=== PATIENT | male | born 1955 | race Caucasian/White ===

== ENCOUNTER 2016-09-15 22:04 | Emergency (ER) | payer OTHER ==
[2016-09-15 22:24] VITALS: BP 119/69; BMI 22.6
--- NOTE | 2016-09-15 23:33 | DR.GENAD ---
HPI - PCP Primary Care Physician: MAGI - Complaint/Symptoms Chief Complaint:: PT C/O NOT FEELING GOOD AND HAVING CRAMPS IN NECK PT STATES" MY NECK GETS CRAMPS SOMETIMES i HAVE A COLD SINCE FRIDAY". - Source History Provided: Patient - Mode of Arrival Mode of Arrival: Ambulatory - Timing Onset of Chief Complaint: 09/13/16 PMH - PMH Past Medical History: Yes Past Medical History: CVA, Diabetes, Hypertension Past Medical History Comment: RENAL CANCER Past Surgical History: Yes Surgical History: Ortho Surgery Past Surgical History Comment: LT KIDNEY REMOVED - Family History History of Family Medical Conditions: Yes Family Medical History: [place] - Social History Type of Tobacco Use: Cigarettes Does any household member use tobacco: Yes Alcohol Use: None Do you use any recreational Drugs:: No Lives With: Family Lives Where: Home - infectious screening In the last 2 months have you had wt loss of >10#?: NO Have you had fever, night sweats or hemotysis?: No Have you traveled outside the country in the last 6 months?: No Isolation: Standard ROS - Review of Systems Constitutional: No Symptoms Reported Eyes: No Symptoms Reported ENTM: No Symptoms Reported Respiratoy: No Symptoms Reported Cardiovascular: No Symptoms Reported, Chest Pain Genitourinary: No Symptoms Reported Neurological: No Symptoms Reported Musculoskeletal: No Symptoms Reported Integumentary: No Symptoms Reported Hematologic/Lymphatic: No Symptoms Reported Endocrine: No Symptoms Reported Psychiatric: No Symptoms Reported All Other Systems: Reviewed and Negative PE - Vital Signs Vitals: Temperature 98.6 F Pulse Rate 101 Respiratory Rate 20 Blood Pressure [Left Arm] 113/62 Blood Pressure [Right Arm] 86/80 Blood Pressure 119/69 O2 Sat by Pulse Oximetry 94 - General Limitations: No Limitations General Appearance: Alert, In No Apparent Distress - Head Head Exam: Normal Inspection, Atraumatic - Eyes Eye exam: Normal Appearance, PERRL, EOMI - ENT ENT Exam: Normal Exam External Ear Exam: Normal External Inspection TM/Canal Exam: Bilateral Normal Nose Exam: Normal Nose Exam Mouth Exam: Normal Inspection Throat Exam: Normal Inspection - Neck Neck Exam: Tenderness - Chest Chest Inspection: Normal Inspection - Respiratory Respiratory Exam: Normal Lung Sounds Bilat Respiratory Exam: Bilateral Clear to Auscultation - Cardiovascular Cardiovascular Exam: Regular Rate - Abdominal Exam Abdominal Exam: Normal Inspection Abdominal Tenderness: negative: RUQ, RLQ, LUQ, LLQ, Epigastrium, Suprapubic, Diffuse, Mild, Moderate, Severe, Other - Extremities Extremities Exam: Normal Inspection, Full ROM - Back Back Exam: Normal Inspection, Full ROM - Neurologic Neurological Exam: Alert, Oriented X3, CN II-XII Intact - Psychiatric Psychiatric Exam: Normal Affect, Normal Mood - Skin Skin Exam: Warm, Dry, Intact - Diagnosis Discharge Problem: Neck pain - Discharge Plan Condition: Stable - Follow ups/Referrals Follow ups/Referrals: Luigi Jaimes [Primary Care Provider] - 3 days - Instructions
[2016-09-15] MEDS ORDERED: DECADRON INJ IM ONE (23:34)
[2016-09-15] MEDS ORDERED: DECADRON INJ ONE (23:49)
[2016-09-16] MEDS ORDERED: FLEXERIL TAB 10 MG PO PRN (00:23)
== END 2016-09-16 00:30 | disposition home or self-care (01) ==
LOC: ER 22:04
DX: M54.2 Cervicalgia (principal)
CPT/HCPCS: 96372; 99282; J1100

== ENCOUNTER 2016-12-05 22:50 | Emergency (ER) | payer OTHER ==
[2016-12-05 22:58] VITALS: BP 130/94; BMI 22.6
--- NOTE | 2016-12-06 01:02 | DR.GENAD ---
HPI - PCP Primary Care Physician: MAGI - HPI Comment HPI Comment: Pt c/o neck pain and cramping for 2 days. Also legs crampng started tonight. He hasn't slept for 6 nights and he takes 3-4 percocets daily. - Complaint/Symptoms Chief Complaint Doctors Comments: neck cramping Chief Complaint:: NECK PAIN, HURTS TO TURN NECK L/R, DENIES INJURY Self Treatment fo Chief Complaint: PERCOCET 1 HR AGO, - Nurses notes reviewed Nurses Notes Review: Yes - Source History Provided: Patient - Mode of Arrival Mode of Arrival: Ambulatory - Timing Onset of Chief Complaint: 12/05/16 Came on: Gradually - Duration Duration: Since Onset How lon Duration: Days - Severity Severity: Moderate PMH - PMH Past Medical History: Yes Past Medical History: CVA, Diabetes, Hypertension Past Surgical History: Yes Surgical History: Ortho Surgery - Family History History of Family Medical Conditions: Yes Family Medical History: [place] - Social History Does patient currently use any type of tobacco product: Yes Have you used tobacco products in the last 12 months: Yes Type of Tobacco Use: Cigarettes Does any household member use tobacco: No Alcohol Use: None Do you use any recreational Drugs:: No Lives With: Alone Lives Where: Home - infectious screening In the last 2 months have you had wt loss of >10#?: NO Have you had fever, night sweats or hemotysis?: No Have you traveled outside the country in the last 6 months?: No Isolation: Standard ROS - Review of Systems Constitutional: Weakness Respiratoy: No Symptoms Reported Cardiovascular: No Symptoms Reported Gastrointestinal/Abdominal: No Symptoms Reported Genitourinary: No Symptoms Reported Neurological: Tingling, Weakness Musculoskeletal: Muscle Pain, Muscle Stiffness, Neck Pain, Right, Left, Leg Integumentary: No Symptoms Reported Hematologic/Lymphatic: No Symptoms Reported Endocrine: No Symptoms Reported Psychiatric: Depression All Other Systems: Reviewed and Negative PE - Vital Signs Vitals: Temperature 98.3 F Pulse Rate 98 Respiratory Rate 16 Blood Pressure [Left Arm] 113/62 Blood Pressure [Right Arm] 86/80 Blood Pressure 130/94 O2 Sat by Pulse Oximetry 96 - General Limitations: No Limitations General Appearance: Alert, In No Apparent Distress - Head Head Exam: Normal Inspection - Neck Neck Exam: Normal Inspection, Full ROM, Tenderness - Chest Chest Inspection: Normal Inspection, Symmetric Chest Wall Rise - Respiratory Respiratory Exam: Normal Lung Sounds Bilat Respiratory Exam: Bilateral Clear to Auscultation - Cardiovascular Cardiovascular Exam: Regular Rate, Normal Rhythm, Normal Heart Sounds - Abdominal Exam Abdominal Exam: Normal Inspection - Extremities Extremities Exam: Normal Inspection - Back Back Exam: Normal Inspection, Full ROM - Neurologic Neurological Exam: Alert, Oriented X3, CN II-XII Intact - Psychiatric Psychiatric Exam: Normal Affect, Normal Mood - Skin Skin Exam: Warm, Dry, Intact, Normal Color MDM - Differential Diagnosis Differential Diagnosis: muscle spasm, electrolyte imbalance, ROR - Labs Reviewed Laboratory Results Reviewed?: Yes Result Diagrams: 12/06/16 01:20 12/06/16 01:20 Laboratory: WBC 7.7 X10^3/uL (3.6-10.0) 12/06/16 01:20 RBC 5.00 X10^6/uL (4.7-6.0) 12/06/16 01:20 Hgb 13.9 g/dL (13.5-18.0) 12/06/16 01:20 Hct 42.0 % (42.0-54.0) 12/06/16 01:20 MCV 84.0 fL (80.0-100.0) 12/06/16 01:20 MCH 27.7 pg (27.0-34.0) 12/06/16 01:20 MCHC 33.0 g/dL (33.0-35.0) 12/06/16 01:20 RDW 14.3 % (11.6-16.5) 12/06/16 01:20 Plt Count 204 X10^3/uL (150.0-450.0) 12/06/16 01:20 MPV 8.8 fL (7.4-11.0) 12/06/16 01:20 Neut % 57.7 % (42.0-75.0) 12/06/16 01:20 Lymph % 28.6 % (21.0-51.0) 12/06/16 01:20 [place] % 7.7 % (0.0-13.0) 12/06/16 01:20 Eos % 5.2 % (0.9-2.9) H 12/06/16 01:20 Baso % 0.8 % (0.2-1.0) 12/06/16 01:20 Neut # 4.4 x10^3/uL (2.2-4.8) 12/06/16 01:20 Lymph # 2.2 X10^3/uL (1.3-2.9) 12/06/16 01:20 [place] # 0.6 x10^3/uL (0.3-0.8) 12/06/16 01:20 Eos # 0.4 x10^3/uL (0.0-0.2) H 12/06/16 01:20 Baso # 0.1 X10^3/uL (0.0-0.1) 12/06/16 01:20 Absolute Nucleated RBC 0.0 /100WBC 12/06/16 01:20 Sodium 143 mmol/L (136-145) 12/06/16 01:20 Corrected Sodium TNP 12/06/16 01:20 Potassium 4.3 mmol/L (3.5-5.1) 12/06/16 01:20 Chloride 105 mmol/L (98-107) 12/06/16 01:20 Carbon Dioxide 31.5 mmol/L (21-32) 12/06/16 01:20 BUN 17 mg/dL (7-18) 12/06/16 01:20 Creatinine 1.30 mg/dL (0.70-1.30) 12/06/16 01:20 Est GFR (MDRD) Af Amer > 60 (>60) 12/06/16 01:20 Est GFR (MDRD) Non-Af 60 (>60) 12/06/16 01:20 Glucose 101 mg/dL (65-99) H 12/06/16 01:20 Calcium 8.5 mg/dL (8.5-10.1) 12/06/16 01:20 Corrected Calcium TNP 12/06/16 01:20 Total Bilirubin 0.20 mg/dL (0.2-1.0) 12/06/16 01:20 AST 29 Units/L (15-37) 12/06/16 01:20 ALT 44 Units/L (12-78) 12/06/16 01:20 Alkaline Phosphatase 96 Units/L (46-116) 12/06/16 01:20 Total Protein 8.1 g/dL (6.4-8.2) 12/06/16 01:20 Albumin 3.9 g/dL (3.4-5.0) 12/06/16 01:20 Globulin 4.2 g/dL (2.5-4.5) 12/06/16 01:20 Albumin/Globulin Ratio 0.9 Ratio (1.1-2.1) L 12/06/16 01:20 Specimen Type Clean catch urine 12/06/16 01:29 Urine Color Yellow (YELLOW) 12/06/16 01:29 Urine Appearance Clear (CLEAR) 12/06/16 01:29 Urine pH 6.0 (5.0 - 8.0) 12/06/16 01:29 Ur Specific [place] 1.015 (1.000-1.030) 12/06/16 01:29 Urine Protein Negative (NEGATIVE) 12/06/16 01: Urine Glucose (UA) Negative (NEGATIVE) 12/06/16 01:29 Urine Ketones Negative (NEGATIVE) 12/06/16 01:29 Urine Occult Blood Negative (NEGATIVE) 12/06/16 01:29 Urine Nitrite Negative (NEGATIVE) 12/06/16 01:29 Urine Bilirubin Negative (NEGATIVE) 12/06/16 01:29 Urine Urobilinogen Normal (NORMAL) 12/06/16 01:29 Ur Leukocyte Esterase Negative (NEGATIVE) 12/06/16 01:29 Urine RBC 0-3 /HPF (NEGATIVE) 12/06/16 01:29 Urine WBC 0-3 /HPF (NEGATIVE) 12/06/16 01:29 Ur Squamous Epith Cells Rare /HPF (NEGATIVE) 12/06/16 01:29 Urine Bacteria Negative /HPF (NEGATIVE) 12/06/16 01:29 Ur Culture Indicated? No/not indicated 12/06/16 01:29 Urine Opiates Screen Negative (NEG=<300) 12/06/16 01:29 Urine Methadone Screen Negative (NEG=<300) 12/06/16 01:29 Ur Barbiturates Screen Negative (NEG=<200) 12/06/16 01:29 Ur Phencyclidine Scrn Negative (NEG=<25) 12/06/16 01:29 Ur Amphetamines Screen Negative (NEG=<1000) 12/06/16 01:29 U Benzodiazepines Scrn Negative (NEG=<200) 12/06/16 01:29 Urine Cocaine Screen Negative (NEG=<300) 12/06/16 01:29 U Marijuana (THC) Screen Negative (NEG=<50) 12/06/16 01:29 - XRAY XRAY Interpreted by: Radiologist (DINAH) - Diagnosis Discharge Problem: Neck pain, Cramps of right lower extremity - Discharge Plan Disposition: 01 HOME, SELF-CARE Condition: Stable - Follow ups/Referrals Follow ups/Referrals: Luigi Jaimes [Primary Care Provider] - 3 days - Instructions Instructions: Heat Exhaustion Information, Acute Torticollis
[2016-12-06] MEDS ORDERED: TORADOL 60 MG VIAL IM ONE (01:10)
[2016-12-06] MEDS ORDERED: NORFLEX INJ IM ONE (01:10)
[2016-12-06] MEDS ORDERED: TORADOL 60 MG VIAL ONE (01:12)
[2016-12-06] MEDS ORDERED: NORFLEX INJ ONE (01:12)
[2016-12-06 01:29] LABS: BASOPHILS # (AUTO) 0.1 X10^3/uL (0.0-0.1); BASOPHILS % (AUTO) 0.8 % (0.2-1.0); EOSINOPHILS # (AUTO) 0.4 x10^3/uL (0.0-0.2); EOSINOPHILS % (AUTO) 5.2 % (0.9-2.9); HEMOGLOBIN 13.9 g/dL (13.5-18.0); LYMPHOCYTES # (AUTO) 2.2 X10^3/uL (1.3-2.9); LYMPHOCYTES % (AUTO) 28.6 % (21.0-51.0); MEAN CORPUSCULAR HEMOGLOBIN 27.7 pg (27.0-34.0); MEAN PLATELET VOLUME 8.8 fL (7.4-11.0); MONOCYTES # (AUTO) 0.6 x10^3/uL (0.3-0.8); MONOCYTES % (AUTO) 7.7 % (0.0-13.0); NEUTROPHILS # (AUTO) 4.4 x10^3/uL (2.2-4.8); NEUTROPHILS % (AUTO) 57.7 % (42.0-75.0); PLATELET COUNT 204 X10^3/uL (150.0-450.0); RED CELL DISTRIBUTION WIDTH 14.3 % (11.6-16.5); WHITE BLOOD COUNT 7.7 X10^3/uL (3.6-10.0)
[2016-12-06 01:37] LABS: BILIRUBIN,URINE NEGATIVE (NEGATIVE); BLOOD/HEMOGLOBIN,URINE NEGATIVE (NEGATIVE); GLUCOSE, URINE NEGATIVE (NEGATIVE); KETONES,URINE NEGATIVE (NEGATIVE); LEUKOCYTE ESTERASE ,URINE NEGATIVE (NEGATIVE); NITRITES,URINE NEGATIVE (NEGATIVE); PROTEIN,URINE NEGATIVE (NEGATIVE); UROBILINOGEN,URINE NORMAL (NORMAL)
[2016-12-06 01:41] LABS: ALANINE AMINOTRANSFERASE 44 Units/L (12-78); ALBUMIN 3.9 g/dL (3.4-5.0); ALKALINE PHOSPHATASE 96 Units/L (46-116); ASPARTATE AMINO TRANSFERASE 29 Units/L (15-37); BLOOD UREA NITROGEN 17 mg/dL (7-18); CALCIUM 8.5 mg/dL (8.5-10.1); CARBON DIOXIDE 31.5 mmol/L (21-32); CHLORIDE 105 mmol/L (98-107); GLUCOSE 101 mg/dL (65-99); SODIUM 143 mmol/L (136-145); TOTAL PROTEIN 8.1 g/dL (6.4-8.2); eGFR BLACK RACES > 60 (>60); eGFR NON BLACK RACES 60 (>60)
[2016-12-06 01:45] LABS: APPEARANCE,URINE CLEAR (CLEAR); BACTERIA,URINE NEGATIVE /HPF (NEGATIVE); COLOR,URINE YELLOW (YELLOW); RBC,URINE 0-3 /HPF (NEGATIVE); SQUAMOUS EPITHELIAL CELL,UR RARE /HPF (NEGATIVE)
--- NOTE | 2016-12-06 01:51 | RAD ---
EXAM: Cervical spine x-ray INDICATION: Neck pain COMPARISION: No priors available for comparison TECHNIQUE: AP, lateral, oblique, and odontoid, 5 views FINDINGS: Moderate degenerative disc changes are seen throughout cervical spine. There is normal alignment of the cervical vertebral bodies. The facets are intact. The soft tissues are normal. No acute fracture or subluxation identified. IMPRESSION: Moderate degenerative disc changes noted throughout the cervical spine. No acute abnormality identif ied. Reported By:
== END 2016-12-06 02:07 | disposition home or self-care (01) ==
LOC: ER 23:03
DX: M54.2 Cervicalgia (principal); R25.2 Cramp and spasm
CPT/HCPCS: 36415; 72050; 80053; 80307; 81001; 85025; 96372; 99282; G0434; J1885; J2360

== ENCOUNTER 2017-03-19 22:13 | Observation (INO) | payer OTHER ==
--- NOTE | 2017-03-19 22:45 | DR.GENAD ---
HPI - PCP Primary Care Physician: MAGI - HPI Comment HPI Comment: PATIENT SAID HE HAD A NOSE BLEEDING WHEN IT STARTED BUT THAT HAVE RESOLVE. SLIGHT CONGESTION PRESENT. DENIES DIZZINESS BUT HE IS WEAK. CONTINUE TO COUGH OFF BLOOD IN ED. NO CHEST PAIN. NO FEVER. PATIENT TAKES PLAVIX AND ASPRIN. - Complaint/Symptoms Chief Complaint Doctors Comments: HEMOPTESIS NOTED ONE HOUR BEFOR COMING. Chief Complaint:: PT STATES" I'M COUGHING UP BLOOD AND MY NOSE HAS BEEN BLEEDING FOR THE LAST HOUR" - Nurses notes reviewed Nurses Notes Review: Yes - Source History Provided: Patient - Mode of Arrival Mode of Arrival: Ambulatory - Timing Onset of Chief Complaint: 03/19/17 Came on: Suddenly - Duration Duration: Constant Duration: Hours - Severity Severity: Moderate PMH - PMH Past Medical History: Yes Past Medical History: CVA, Diabetes, Hypertension Past Surgical History: Yes Surgical History: Ortho Surgery Past Surgical History Comment: LT KIDNEY REMOVED LT KNEE - Family History History of Family Medical Conditions: Yes Family Medical History: [place] - Social History Does any household member use tobacco: No Alcohol Use: None Do you use any recreational Drugs:: No Lives With: Family Lives Where: Home - infectious screening In the last 2 months have you had wt loss of >10#?: NO Have you had fever, night sweats or hemotysis?: No Have you traveled outside the country in the last 6 months?: No Isolation: Standard ROS - Review of Systems Constitutional: Weakness, Fatigue. negative: Chills, Fever Eyes: negative: Eye Pain, Discharge ENTM: Nose Congestion. negative: Ear Pain, Nose Discharge Respiratoy: Productive Cough, Short of Breath, Wheezing, Hemoptysis Cardiovascular: No Symptoms Reported Gastrointestinal/Abdominal: No Symptoms Reported Genitourinary: No Symptoms Reported Neurological: Weakness Musculoskeletal: No Symptoms Reported Integumentary: No Symptoms Reported Hematologic/Lymphatic: Easy Bleeding, Easy Bruising Endocrine: No Symptoms Reported All Other Systems: Reviewed and Negative PE - Vital Signs Vitals: Temperature 98.1 F Pulse Rate [Left Brachial] 109 Pulse Rate 116 Respiratory Rate 20 Blood Pressure [Left Arm] 109/71 Blood Pressure [Right Arm] 86/80 Blood Pressure 119/82 O2 Sat by Pulse Oximetry 96 - General Limitations: No Limitations General Appearance: Alert - Head Head Exam: Normal Inspection - Eyes Eye exam: Normal Appearance - ENT ENT Exam: Normal External Ear Exam External Ear Exam: Normal External Inspection TM/Canal Exam: Bilateral Normal Nose Exam: Normal Nose Exam (NO ACTIVE NOSE BLEED.) Mouth Exam: Normal Inspection Throat Exam: Normal Inspection - Neck Neck Exam: Trachea Midline - Chest Chest Inspection: Symmetric Chest Wall Rise - Respiratory Respiratory Exam: Normal Lung Sounds Bilat Respiratory Exam: Upper Wheezing, Lower Wheezing - Cardiovascular Cardiovascular Exam: Regular Rate, Normal Rhythm, Normal Heart Sounds - Abdominal Exam Abdominal Exam: Normal Bowel Sounds, Soft. negative: Tenderness - Extremities Extremities Exam: Normal Inspection - Back Back Exam: Normal Inspection - Neurologic Neurological Exam: Alert, Oriented X3 - Psychiatric Psychiatric Exam: Anxious - Skin Skin Exam: Normal Color MDM - Additional Information Additional Information Obtained From: Family - Differential Diagnosis Differential Diagnosis: HEMOPTESIS, BRONCHITIS, PNEUMONIA Course - Treatment Treatment: SEE ORDERS. BLEEDING SPOTANOUSLY DECREASING WHILE IN ED. - Reevaluation 1st: Improved - Consultation Consultation Comments: DISCUSS PATIENT WITH DR. SOW, HE WILL ADMIT PATIENT. - Education/Counseling Education/Counseling: Patient, Family, Education Educated On: Treatment, Diagnosis ROR - Labs Reviewed Laboratory Results Reviewed?: Yes Result Diagrams: 03/19/17 22:55 03/19/17 22:55 Laboratory: WBC 6.6 X10^3/uL (3.6-10.0) 03/19/17 22:55 RBC 4.70 X10^6/uL (4.7-6.0) 03/19/17 22:55 Hgb 13.2 g/dL (13.5-18.0) L 03/19/17 22:55 Hct 39.3 % (42.0-54.0) L 03/19/17 22:55 MCV 83.7 fL (80.0-100.0) 03/19/17 22:55 MCH 28.1 pg (27.0-34.0) 03/19/17 22:55 MCHC 33.6 g/dL (33.0-35.0) 03/19/17 22:55 RDW 13.8 % (11.6-16.5) 03/19/17 22:55 Plt Count 219 X10^3/uL (150.0-450.0) 03/19/17 22:55 MPV 8.8 fL (7.4-11.0) 03/19/17 22:55 Neut % 55.7 % (42.0-75.0) 03/19/17 22:55 Lymph % 32.0 % (21.0-51.0) 03/19/17 22:55 [place] % 6.0 % (0.0-13.0) 03/19/17 22:55 Eos % 5.5 % (0.9-2.9) H 03/19/17 22:55 Baso % 0.8 % (0.2-1.0) 03/19/17 22:55 Neut # 3.7 x10^3/uL (2.2-4.8) 03/19/17 22:55 Lymph # 2.1 X10^3/uL (1.3-2.9) 03/19/17 22:55 [place] # 0.4 x10^3/uL (0.3-0.8) 03/19/17 22:55 Eos # 0.4 x10^3/uL (0.0-0.2) H 03/19/17 22:55 Baso # 0.0 X10^3/uL (0.0-0.1) 03/19/17 22:55 Absolute Nucleated RBC 0.0 /100WBC 03/19/17 22:55 INR Target Range - 03/19/17 22:55 INR 0.90 (0.8-1.3) 03/19/17 22:55 PTT 27.6 SECONDS (22.9-36.5) 03/19/17 22:55 PTT Comment - 03/19/17 22:55 Sodium 143 mmol/L (136-145) 03/19/17 22:55 Corrected Sodium 144 mmol/L (136-145) 03/19/17 22:55 Potassium 4.2 mmol/L (3.5-5.1) 03/19/17 22:55 Chloride 105 mmol/L (98-107) 03/19/17 22:55 Carbon Dioxide 26.9 mmol/L (21-32) 03/19/17 22:55 BUN 14 mg/dL (7-18) 03/19/17 22:55 Creatinine 1.38 mg/dL (0.70-1.30) H 03/19/17 22:55 Est GFR (MDRD) Af Amer > 60 (>60) 03/19/17 22:55 Est GFR (MDRD) Non-Af 56 (>60) L 03/19/17 22:55 Glucose 125 mg/dL (65-99) H 03/19/17 22:55 Calcium 8.5 mg/dL (8.5-10.1) 03/19/17 22:55 Corrected Calcium TNP 03/19/17 22:55 Total Bilirubin 0.10 mg/dL (0.2-1.0) L 03/19/17 22:55 AST 31 Units/L (15-37) 03/19/17 22:55 ALT 39 Units/L (12-78) 03/19/17 22:55 Alkaline Phosphatase 85 Units/L (46-116) 03/19/17 22:55 Total Protein 7.5 g/dL (6.4-8.2) 03/19/17 22:55 Albumin 3.6 g/dL (3.4-5.0) 03/19/17 22:55 Globulin 3.9 g/dL (2.5-4.5) 03/19/17 22:55 Albumin/Globulin Ratio 0.9 Ratio (1.1-2.1) L 03/19/17 22:55 - XRAY XRAY Interpreted by: Self XRAY Findings: BRONCHITIS - Diagnosis Discharge Problem: Bronchitis, Hemoptysis Pneumonia Qualifiers: Pneumonia type: due to unspecified organism COPD (chronic obstructive pulmonary disease) Qualifiers: COPD type: emphysema Emphysema type: unspecified Qualified Code(s): J43.9 - Emphysema, unspecified - Discharge Plan Disposition: ADMITTED INPATIENT Condition: Stable - Follow ups/Referrals - Instructions
[2017-03-19 23:02] LABS: BASOPHILS % (AUTO) 0.8 % (0.2-1.0); EOSINOPHILS # (AUTO) 0.4 x10^3/uL (0.0-0.2); EOSINOPHILS % (AUTO) 5.5 % (0.9-2.9); HEMATOCRIT 39.3 % (42.0-54.0); HEMOGLOBIN 13.2 g/dL (13.5-18.0); LYMPHOCYTES # (AUTO) 2.1 X10^3/uL (1.3-2.9); MEAN CORPUSCULAR HEMOGLOBIN 28.1 pg (27.0-34.0); MEAN CORPUSCULAR HGB CONC 33.6 g/dL (33.0-35.0); MEAN CORPUSCULAR VOLUME 83.7 fL (80.0-100.0); MEAN PLATELET VOLUME 8.8 fL (7.4-11.0); MONOCYTES # (AUTO) 0.4 x10^3/uL (0.3-0.8); NEUTROPHILS # (AUTO) 3.7 x10^3/uL (2.2-4.8); NEUTROPHILS % (AUTO) 55.7 % (42.0-75.0); PLATELET COUNT 219 X10^3/uL (150.0-450.0); RED CELL DISTRIBUTION WIDTH 13.8 % (11.6-16.5); WHITE BLOOD COUNT 6.6 X10^3/uL (3.6-10.0)
[2017-03-19 23:14] LABS: ALANINE AMINOTRANSFERASE 39 Units/L (12-78); ALBUMIN 3.6 g/dL (3.4-5.0); ALKALINE PHOSPHATASE 85 Units/L (46-116); ASPARTATE AMINO TRANSFERASE 31 Units/L (15-37); BLOOD UREA NITROGEN 14 mg/dL (7-18); CALCIUM 8.5 mg/dL (8.5-10.1); CARBON DIOXIDE 26.9 mmol/L (21-32); CHLORIDE 105 mmol/L (98-107); COR NA(FOR HYPERGLY) 144 mmol/L (136-145); CREATININE 1.38 mg/dL (0.70-1.30); SODIUM 143 mmol/L (136-145); TOTAL PROTEIN 7.5 g/dL (6.4-8.2); eGFR BLACK RACES > 60 (>60); eGFR NON BLACK RACES 56 (>60)
[2017-03-19] MEDS ORDERED: XYLOCAINE 1 % (PLAIN) IM ONE (23:34)
[2017-03-20] MEDS ORDERED: TESSALON PERLES PO PRN (02:22)
[2017-03-20] MEDS ORDERED: ROCEPHIN VIAL 1 GM 1 GM in NS 50 ML IV + SPIKE MINIBAG* 50 ML IV SCH (02:30)
[2017-03-20] MEDS ORDERED: ROCEPHIN 1 GM IV PREMIX 1 GM/50 ML IV.SOLN. IV ONE (02:33)
[2017-03-20] MEDS ORDERED: NS 1000 ML 1,000 ML IV SCH (03:00)
[2017-03-20] MEDS: FLONASE NASAL SPRAY ENOSTRIL SCH ×2 (03:25→08:55)
[2017-03-20 03:33] VITALS: BMI 23.3
--- NOTE | 2017-03-20 05:40 | RAD ---
Chest, two views Indication: Coughing up blood Comparison: 04/17/2016 Findings: The heart size is normal. There are persistent opacities within the right upper lung with s uggestion of an underlying 1.5 cm spiculated lesion. Emphysematous changes are again noted. There are trace bilateral pleural effusions. The remainder of the lungs are clear. No pneumothorax is identifi ed. Impression: Persistent right upper lobe opacities with suggestion of an underlying 1.5 cm spiculated lesion. Give n patient history of hemoptysis, findings are highly concerning for underlying malignancy and further evaluation with contrast enhanced CT is recommended. Small bilateral pleural effusions. The above findings were discussed with Dr. Cortez by Dr. Cook via telephone at 5:30 a.m. 03/20/2017. Reported By:
[2017-03-20] MEDS: DUONEB 0.5 MG/3 MG NEB SCH ×2 (05:47→13:24)
[2017-03-20 06:06] LABS: BASOPHILS % (AUTO) 0.5 % (0.2-1.0); EOSINOPHILS # (AUTO) 0.2 x10^3/uL (0.0-0.2); HEMATOCRIT 37.2 % (42.0-54.0); HEMOGLOBIN 12.4 g/dL (13.5-18.0); LYMPHOCYTES # (AUTO) 1.4 X10^3/uL (1.3-2.9); LYMPHOCYTES % (AUTO) 20.8 % (21.0-51.0); MEAN CORPUSCULAR HGB CONC 33.5 g/dL (33.0-35.0); MEAN CORPUSCULAR VOLUME 83.8 fL (80.0-100.0); MEAN PLATELET VOLUME 9.1 fL (7.4-11.0); MONOCYTES # (AUTO) 0.5 x10^3/uL (0.3-0.8); MONOCYTES % (AUTO) 7.6 % (0.0-13.0); NEUTROPHILS # (AUTO) 4.7 x10^3/uL (2.2-4.8); NEUTROPHILS % (AUTO) 68.1 % (42.0-75.0); PLATELET COUNT 185 X10^3/uL (150.0-450.0); RED BLOOD COUNT 4.44 X10^6/uL (4.7-6.0); WHITE BLOOD COUNT 6.9 X10^3/uL (3.6-10.0)
[2017-03-20 06:25] LABS: ALANINE AMINOTRANSFERASE 35 Units/L (12-78); ALBUMIN 3.3 g/dL (3.4-5.0); ALKALINE PHOSPHATASE 78 Units/L (46-116); ASPARTATE AMINO TRANSFERASE 30 Units/L (15-37); BLOOD UREA NITROGEN 22 mg/dL (7-18); CALCIUM 8.5 mg/dL (8.5-10.1); CARBON DIOXIDE 24.7 mmol/L (21-32); CHLORIDE 106 mmol/L (98-107); COR CA(FOR HYPOALB) 9.1 mg/dL (8.5-10.1); COR NA(FOR HYPERGLY) 143 mmol/L (136-145); SODIUM 143 mmol/L (136-145); eGFR BLACK RACES > 60 (>60); eGFR NON BLACK RACES > 60 (>60)
[2017-03-20 07:20] LABS: CKMB % 1.8 % (<4); CREATINE KINASE 241 Units/L (39-308); TROPONIN I < 0.02 ng/mL (0-1.5)
[2017-03-20 07:22] LABS: CREATINE KINASE MB 4.3 ng/mL (0-4.0)
[2017-03-20] MEDS ORDERED: ROCEPHIN VIAL 1 GM 1 GM in NS 100 ML IV + SPIKE MINIBAG* 100 ML IV SCH (09:00)
--- NOTE | 2017-03-20 09:52 | CT ---
HISTORY: Hemoptysis infiltrate Study: CT chest with contrast Comparison: 04/16/2016 Technique: Multiple axial images of the chest were obtained from the thoracic inlet to the upper abdo men after the administration of IV contrast. Findings: The mediastinum does not demonstrate significant pathological lymphadenopathy. The previously describ ed mediastinal lymph nodes. And resolve decreased in size.. There is no pericardial effusion observe d. The thoracic aorta is normal in its contour without evidence for aneurysmal dilatation. The cent ral pulmonary arterial system does not demonstrate central filling defects to suggest pulmonary embol i. Evaluation of the lung parenchyma demonstrates persistent right perihilar triangular opacity with air bronchograms which is unchanged. This may be post treatment in nature although this would be better evaluated with a PET-CT to assess for metabolic activity. No focal consolidation or effusion is seen. . No new nodules are seen. The bony thorax is unremarkable in its appearance. The visualized porti ons of the upper abdomen are stable. IMPRESSION: 1. Stable right perihilar opacity unchanged from prior CT its probably due to postprocedural changes however this could be better evaluated with PET-CT to assess for any metabolic activity. Reported By:
[2017-03-20 12:30] LABS: CKMB % 2.1 % (<4); CREATINE KINASE 222 Units/L (39-308); TROPONIN I < 0.02 ng/mL (0-1.5)
[2017-03-20 12:32] LABS: CREATINE KINASE MB 4.6 ng/mL (0-4.0)
[2017-03-20 12:46] VITALS: BP 131/82
[2017-03-20] MEDS ORDERED: NORCO 5/325 MG TAB ONE (13:30)
[2017-03-20 13:36] LABS: HEMATOCRIT 38.8 % (42.0-54.0); HEMOGLOBIN 12.9 g/dL (13.5-18.0)
[2017-03-20] MEDS ORDERED: NORCO 5/325 MG TAB PO ONE (14:00)
== END 2017-03-20 14:25 | disposition home or self-care (01) ==
LOC: ER 22:38 → MED/SURG 03-20 02:10
PROVIDERS: ADMIT Internal Medicine; ATTEND Internal Medicine
DX: J20.9 Acute bronchitis, unspecified (principal); R04.2 Hemoptysis; J43.8 Other emphysema; J18.9 Pneumonia, unspecified organism; J90 Pleural effusion, not elsewhere classified; Z79.01 Long term (current) use of anticoagulants
CPT/HCPCS: 36415; 71020; 71260; 80053; 82550; 82553; 84484; 85014; 85018; 85025; 85610; 85730; 93005; 94640; 94760; 96365; 96374; 99218; 99284; A4222; G0378; J0696; J7620

== ENCOUNTER → 2017-08-21 | Outpatient (CLI) | payer OTHER ==
[~2017-08-21] MED LIST: NS 100 ML IV 100 ML IV ONE
--- NOTE | 2017-08-21 12:56 | CT ---
Indication: Pain and history of lung cancer Exam: CT abdomen and pelvis with contrast Comparison: 06/06/2014 Technique: Axial spiral images were obtained from lung bases through the pubic symphysis after bolus administration 75 cc Omnipaque 300 and oral contrast. Automated dose control was utilized. Findings: The lung bases are clear. There is mild hypertrophy of the caudate and left lobes of the li evert with mild fatty replacement throughout. There are some small hypodense cysts scattered in the lef t lobe superiorly measuring up to 8 mm which do not enhance and appear unchanged. The gallbladder, pa ncreas , and adrenals are normal. The spleen is normal size with a 3.7 cm cystic mass along the lower pole medially measuring 25 Hounsfield units . This measured 3 cm previously. No septations or enhanc ement is seen. The left kidney has been removed. The adrenals are normal. The right kidney is grossly normal in size with small hypodense cysts along the lower pole with the largest measuring 2.2 cm . T his measured 1.5 cm previously and measures 25 Hounsfield units . There is a smaller 1 cm cyst along the lower pole which is also slightly spot larger in size . No hydronephrosis or renal stones are see n. There is no adenopathy or ascites seen. 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 No adenopathy or ascites is seen. The appendix is normal. T he uterus has been removed with no adnexal mass or free fluid. The bladder is unremarkable. There is mild fat density along the inguinal regions which is unchanged. There are diverticula scattered along the sigmoid colon with which is unchanged with no pericolonic inflammation. There are degenerative c hanges seen at L5-S1 with bilateral pars defects and grade 1-2 spondylolisthesis of L5 on S1 . No agg ressive osseous lesion is seen. Impression: Status post left nephrectomy with a couple of small hypodense cystic appearing masses along the lower pole right kidney which have enlarged since the prior study and the largest has a mildly complex ap pearance . Recommend ultrasound correlation. 3.7 cm cystic mass in the spleen which has slightly enlarged but is up otherwise unchanged in appeara nce. Mild chronic liver changes with fatty replacement throughout and small hepatic cysts in the left lobe which is unchanged . Stat post hysterectomy with no pelvic mass Moderate diverticulosis of the sigmoid colon with no pericolonic inflammation. Small inguinal hernias bilaterally which are unchanged. Severe degenerative changes at L5-S1 with pars defects at L5 and associated grade 1-2 spondylolisthes is of L5 on S1. Reported By:
== END ==
LOC: RAD 10:20
PROVIDERS: ATTEND Internal Medicine
DX: R14.0 Abdominal distension (gaseous) (principal); R10.84 Generalized abdominal pain; Z85.21 Personal history of malignant neoplasm of larynx
CPT/HCPCS: 74177; A4222

== ENCOUNTER 2018-06-19 23:28 | Inpatient (IN) ==
--- NOTE | 2018-06-20 00:19 | DR.EXTPAIN ---
HPI Time seen Time Seen by Provider: 06/20/18 00:07 PCP Primary Care Physician: DR. SOW Complaint/Symptoms Chief Complaint Doctor Comments: 63 y/o male presenting with c/o right sided lower rib pain. He states this has been present x 6 days. He was self medicating at home. He has associated cough nut no dypnea. The pain is exacerbated by deep breath, cough and positional arm changes. He has had no fever, nausea/vomiting. Chief Complaint:: STATES HE IS HURTING ON HIS RIGHT SIDE AND BACK PAIN. PT IS COUGHING DURING TRIAGE. Self Treatment fo Chief Complaint: PERCOCET 10/325MG Source History Provided: Patient Mode of arrival Mode of Arrival: Ambulatory Timing Onset of Chief Complaint: 06/18/18 PMH PMH Past Medical History: Yes Past Medical History: CVA, Diabetes and Hypertension Past Surgical History: Yes Surgical History: Ortho Surgery Past Surgical History Comment: LEFT KIDNEY REMOVAL Family History History of Family Medical Conditions: Yes Family Medical History: [place] Social History Alcohol Use: None Do you use any recreational Drugs:: No Lives With: Family Lives Where: Home infectious screening In the last 2 months have you had wt loss of >10#?: NO Have you had fever, night sweats or hemotysis?: No Have you traveled outside the country in the last 6 months?: No Isolation: Standard ROS Review of Systems Constitutional: No Symptoms Reported Eyes: No Symptoms Reported ENTM: No Symptoms Reported Respiratoy: Non-Productive Cough Cardiovascular: Chest Pain (rt. lower chest ) Gastrointestinal/Abdominal: No Symptoms Reported Genitourinary: No Symptoms Reported Neurological: No Symptoms Reported Musculoskeletal: No Symptoms Reported Integumentary: No Symptoms Reported Hematologic/Lymphatic: No Symptoms Reported Endocrine: No Symptoms Reported Psychiatric: No Symptoms Reported PE Vital Signs Vitals: Temperature 98.4 F Pulse Rate [Brachial] 96 Pulse Rate 96 Respiratory Rate 20 Blood Pressure [Left Arm] 131/82 Blood Pressure [Right Arm] 111/66 Blood Pressure 113/62 O2 Sat by Pulse Oximetry 96 General Limitations: No Limitations General Appearance: Alert and In No Apparent Distress Head Head Exam: Normal Inspection, Atraumatic and Normocephalic Eyes Eye exam: Normal Appearance, PERRL and EOMI ENT ENT Exam: Normal Exam, Normal Oropharynx and Mucous Membranes Moist Neck Neck Exam: Normal Inspection, Full ROM and Trachea Midline Chest Chest Inspection: Normal Inspection and Symmetric Chest Wall Rise Respiratory Respiratory Exam: Normal Lung Sounds Bilat Cardiovascular Cardiovascular Exam: Regular Rate, Normal Rhythm, +S1 and +S2 Abdominal Exam Abdominal Exam: Normal Inspection, Normal Bowel Sounds and Soft Extremities Extremities Exam: Normal Inspection and Full ROM Back Back Exam: Normal Inspection Neurological Neurological Exam: Alert and Oriented X3 Psychiatric Psychiatric Exam: Normal Affect and Normal Mood Skin Skin Exam: Warm, Dry and Intact ROR Labs Reviewed Result Diagrams: 06/20/18 00:24 06/20/18 00:24 Laboratory: WBC 10.6 X10^3/uL (3.6-10.0) H 06/20/18 00:24 RBC 4.16 X10^6/uL (4.7-6.0) L 06/20/18 00:24 Hgb 11.7 g/dL (13.5-18.0) L 06/20/18 00:24 Hct 34.8 % (42.0-54.0) L 06/20/18 00:24 MCV 83.8 fL (80.0-100.0) 06/20/18 00:24 MCH 28.1 pg (27.0-34.0) 06/20/18 00:24 MCHC 33.5 g/dL (33.0-35.0) 06/20/18 00:24 RDW 13.9 % (11.6-16.5) 06/20/18 00:24 Plt Count 315 X10^3/uL (150.0-450.0) 06/20/18 00:24 MPV 8.3 fL (7.4-11.0) 06/20/18 00:24 Neut % (Auto) 73.1 % (42.0-75.0) 06/20/18 00:24 Lymph % (Auto) 12.7 % (21.0-51.0) L 06/20/18 00:24 [place] % (Auto) 9.0 % (0.0-13.0) 06/20/18 00:24 Eos % (Auto) 4.2 % (0.9-2.9) H 06/20/18 00:24 Baso % (Auto) 1.0 % (0.2-1.0) 06/20/18 00:24 Neut # (Auto) 7.7 x10^3/uL (2.2-4.8) H 06/20/18 00:24 Lymph # (Auto) 1.3 X10^3/uL (1.3-2.9) 06/20/18 00:24 [place] # (Auto) 0.9 x10^3/uL (0.3-0.8) H 06/20/18 00:24 Eos # (Auto) 0.4 x10^3/uL (0.0-0.2) H 06/20/18 00:24 Baso # (Auto) 0.1 X10^3/uL (0.0-0.1) 06/20/18 00:24 Absolute Nucleated RBC 0.0 /100WBC 06/20/18 00:24 Sodium 136 mmol/L (136-145) 06/20/18 00:24 Corrected Sodium 137 mmol/L (136-145) 06/20/18 00:24 Potassium 4.2 mmol/L (3.5-5.1) 06/20/18 00:24 Chloride 98 mmol/L (98-107) 06/20/18 00:24 Carbon Dioxide 28.7 mmol/L (21-32) 06/20/18 00:24 BUN 23 mg/dL (7-18) H 06/20/18 00:24 Creatinine 1.54 mg/dL (0.70-1.30) H 06/20/18 00:24 Est GFR (MDRD) Af Amer 59 (>60) 06/20/18 00:24 Est GFR (MDRD) Non-Af 49 (>60) L 06/20/18 00:24 Glucose 121 mg/dL (65-99) H 06/20/18 00:24 Calcium 8.6 mg/dL (8.5-10.1) 06/20/18 00:24 Corrected Calcium 9.6 mg/dL (8.5-10.1) 06/20/18 00:24 Total Bilirubin 0.30 mg/dL (0.2-1.0) 06/20/18 00:24 AST 301 Units/L (15-37) H 06/20/18 00:24 ALT 147 Units/L (12-78) H 06/20/18 00:24 Alkaline Phosphatase 119 Units/L (46-116) H 06/20/18 00:24 Creatine Kinase 66694 Units/L (39-308) H 06/20/18 00:24 CK-MB (CK-2) 91.1 ng/mL (0-4.0) H* 06/20/18 00:24 CK/CKMB % Calc 0.7 % (<4) 06/20/18 00:24 Troponin I < 0.02 ng/mL (0-1.5) 06/20/18 00:24 Total Protein 7.8 g/dL (6.4-8.2) 06/20/18 00:24 Albumin 2.7 g/dL (3.4-5.0) L 06/20/18 00:24 Globulin 5.1 g/dL (2.5-4.5) H 06/20/18 00:24 Albumin/Globulin Ratio 0.5 Ratio (1.1-2.1) L 06/20/18 00:24 Diagnosis Discharge Problem: Elevated LFTs, Solitary kidney Rhabdomyolysis Qualifiers: Rhabdomyolysis type: non-traumatic Qualified Code(s): M62.82 - Rhabdomyolysis COPD (chronic obstructive pulmonary disease) Qualifiers: COPD type: chronic bronchitis Chronic bronchitis type: simple Qualified Code(s): J41.0 - Simple chronic bronchitis Diabetes mellitus Qualifiers: Diabetes mellitus type: type 2 Diabetes mellitus intermodal dispatcher insulin use: without intermodal dispatcher use Diabetes mellitus complication status: without complication Qualified Code(s): E11.9 - Type 2 diabetes mellitus without complications
[2018-06-20 00:38] LABS: BASOPHILS # (AUTO) 0.1 X10^3/uL (0.0-0.1); EOSINOPHILS # (AUTO) 0.4 x10^3/uL (0.0-0.2); EOSINOPHILS % (AUTO) 4.2 % (0.9-2.9); HEMATOCRIT 34.8 % (42.0-54.0); HEMOGLOBIN 11.7 g/dL (13.5-18.0); LYMPHOCYTES # (AUTO) 1.3 X10^3/uL (1.3-2.9); LYMPHOCYTES % (AUTO) 12.7 % (21.0-51.0); MEAN CORPUSCULAR HEMOGLOBIN 28.1 pg (27.0-34.0); MEAN CORPUSCULAR HGB CONC 33.5 g/dL (33.0-35.0); MEAN CORPUSCULAR VOLUME 83.8 fL (80.0-100.0); MEAN PLATELET VOLUME 8.3 fL (7.4-11.0); MONOCYTES # (AUTO) 0.9 x10^3/uL (0.3-0.8); NEUTROPHILS # (AUTO) 7.7 x10^3/uL (2.2-4.8); NEUTROPHILS % (AUTO) 73.1 % (42.0-75.0); PLATELET COUNT 315 X10^3/uL (150.0-450.0); RED BLOOD COUNT 4.16 X10^6/uL (4.7-6.0); RED CELL DISTRIBUTION WIDTH 13.9 % (11.6-16.5); WHITE BLOOD COUNT 10.6 X10^3/uL (3.6-10.0)
[2018-06-20 00:50] LABS: BLOOD UREA NITROGEN 23 mg/dL (7-18); CALCIUM 8.6 mg/dL (8.5-10.1); CARBON DIOXIDE 28.7 mmol/L (21-32); CHLORIDE 98 mmol/L (98-107); COR NA(FOR HYPERGLY) 137 mmol/L (136-145); CREATININE 1.54 mg/dL (0.70-1.30); SODIUM 136 mmol/L (136-145); TROPONIN I < 0.02 ng/mL (0-1.5); eGFR NON BLACK RACES 49 (>60)
[2018-06-20 01:13] LABS: ALANINE AMINOTRANSFERASE 147 Units/L (12-78); ALBUMIN 2.7 g/dL (3.4-5.0); ALKALINE PHOSPHATASE 119 Units/L (46-116); ASPARTATE AMINO TRANSFERASE 301 Units/L (15-37); COR CA(FOR HYPOALB) 9.6 mg/dL (8.5-10.1); TOTAL PROTEIN 7.8 g/dL (6.4-8.2)
--- NOTE | 2018-06-20 01:24 | RAD ---
Chest AP portable Indication: Pain after injury Findings: There is no pneumothorax or effusion. There is no consolidation. Monitoring leads obscure detail. Heart size is prominent lungs are hyperinflated Impression: Cardiomegaly and COPD. No large pneumothorax or dense consolidation seen. Patient rotation limits sensitivity significantly. Reported By:
[2018-06-20 01:45] LABS: CKMB % 0.7 % (<4); CREATINE KINASE 12236 Units/L (39-308); CREATINE KINASE MB 91.1 ng/mL (0-4.0)
[2018-06-20] MEDS ORDERED: NS 1000 ML 1,000 ML ONE (01:46)
[2018-06-20] MEDS ORDERED: NS 1000 ML 1,000 ML IV ONE (01:59)
[2018-06-20] MEDS: NS 1000 ML 1,000 ML IV SCH ×4 (03:05→20:58)
[2018-06-20] MEDS ORDERED: PATIENT'S HOME MEDICATION (Oxycodone-Acetaminophen [Oxycodone-Acetaminophen] 0 MG) PO PRN (03:17)
[2018-06-20] MEDS: DUONEB 0.5 MG/3 MG NEB PRN ×5 (03:54→20:58)
[2018-06-20 04:06] VITALS: BMI 22.1
[2018-06-20] MEDS: REQUIP PO SCH ×3 (05:20→21:14)
[2018-06-20] MEDS ORDERED: LYRICA CAP 150 MG PO SCH (06:00)
[2018-06-20 06:09] LABS: BILIRUBIN,URINE NEGATIVE (NEGATIVE); BLOOD/HEMOGLOBIN,URINE 2+ (NEGATIVE); GLUCOSE, URINE NEGATIVE (NEGATIVE); KETONES,URINE NEGATIVE (NEGATIVE); LEUKOCYTE ESTERASE ,URINE NEGATIVE (NEGATIVE); NITRITES,URINE NEGATIVE (NEGATIVE); PROTEIN,URINE 1+ (NEGATIVE); UROBILINOGEN,URINE NORMAL (NORMAL)
[2018-06-20 06:22] LABS: APPEARANCE,URINE CLEAR (CLEAR); COLOR,URINE YELLOW (YELLOW)
[2018-06-20 06:53] LABS: BACTERIA,URINE NEGATIVE /HPF (NEGATIVE); RBC,URINE 0-2 /HPF (NONE SEEN); SQUAMOUS EPITHELIAL CELL,UR RARE /HPF (NEGATIVE)
[2018-06-20] MEDS ORDERED: HumuLIN R SUBCUT PRN (07:54)
[2018-06-20] MEDS ORDERED: GLUCOPHAGE PO SCH (09:00)
[2018-06-20] MEDS: ROXICODONE TAB 5 MG PO PRN ×2 (09:10→20:13)
[2018-06-20] MEDS: ECOTRIN TAB 325 MG PO SCH (09:11)
[2018-06-20] MEDS: PLAVIX PO SCH (09:11)
[2018-06-20] MEDS: SYNTHROID 50 mcg TAB PO SCH (09:11)
[2018-06-20] MEDS: CRESTOR TAB 10 MG PO SCH (09:11)
[2018-06-20 10:39] LABS: TROPONIN I < 0.02 ng/mL (0-1.5)
[2018-06-20 10:46] LABS: CKMB % 0.7 % (<4); CREATINE KINASE 6178 Units/L (39-308); CREATINE KINASE MB 39.9 ng/mL (0-4.0)
[2018-06-20] MEDS: ZANAFLEX PO PRN ×2 (14:20→22:35)
[2018-06-20] MEDS: SNACK - Diabetic Appropriate PO SCH (20:12)
[2018-06-20] MEDS: TYLENOL 325 MG TAB PO PRN (20:13)
[2018-06-21] MEDS: NS 1000 ML 1,000 ML IV SCH ×4 (03:03→21:03)
[2018-06-21] MEDS: REQUIP PO SCH ×3 (05:13→21:03)
[2018-06-21] MEDS: ROXICODONE TAB 5 MG PO PRN ×3 (05:19→21:04)
[2018-06-21] MEDS: TYLENOL 325 MG TAB PO PRN ×3 (05:20→21:05)
[2018-06-21 05:31] LABS: BASOPHILS % (AUTO) 0.2 % (0.2-1.0); EOSINOPHILS # (AUTO) 0.1 x10^3/uL (0.0-0.2); EOSINOPHILS % (AUTO) 0.9 % (0.9-2.9); HEMATOCRIT 33.9 % (42.0-54.0); LYMPHOCYTES # (AUTO) 1.1 X10^3/uL (1.3-2.9); LYMPHOCYTES % (AUTO) 7.2 % (21.0-51.0); MEAN CORPUSCULAR HEMOGLOBIN 27.2 pg (27.0-34.0); MEAN CORPUSCULAR HGB CONC 32.4 g/dL (33.0-35.0); MEAN CORPUSCULAR VOLUME 83.9 fL (80.0-100.0); MEAN PLATELET VOLUME 8.6 fL (7.4-11.0); MONOCYTES # (AUTO) 0.9 x10^3/uL (0.3-0.8); MONOCYTES % (AUTO) 5.9 % (0.0-13.0); NEUTROPHILS # (AUTO) 13.7 x10^3/uL (2.2-4.8); NEUTROPHILS % (AUTO) 85.8 % (42.0-75.0); PLATELET COUNT 323 X10^3/uL (150.0-450.0); RED BLOOD COUNT 4.04 X10^6/uL (4.7-6.0); RED CELL DISTRIBUTION WIDTH 13.8 % (11.6-16.5); WHITE BLOOD COUNT 15.9 X10^3/uL (3.6-10.0)
[2018-06-21 05:50] LABS: ALANINE AMINOTRANSFERASE 106 Units/L (12-78); ALBUMIN 2.4 g/dL (3.4-5.0); ALKALINE PHOSPHATASE 107 Units/L (46-116); ASPARTATE AMINO TRANSFERASE 121 Units/L (15-37); BLOOD UREA NITROGEN 13 mg/dL (7-18); CALCIUM 8.6 mg/dL (8.5-10.1); CARBON DIOXIDE 26.7 mmol/L (21-32); CHLORIDE 103 mmol/L (98-107); COR CA(FOR HYPOALB) 9.9 mg/dL (8.5-10.1); COR NA(FOR HYPERGLY) 140 mmol/L (136-145); CREATININE 1.18 mg/dL (0.70-1.30); SODIUM 139 mmol/L (136-145); TOTAL PROTEIN 7.3 g/dL (6.4-8.2); eGFR NON BLACK RACES > 60 (>60)
[2018-06-21 08:00] LABS: TROPONIN I < 0.02 ng/mL (0-1.5)
[2018-06-21 08:08] LABS: CKMB % 0.3 % (<4)
[2018-06-21 08:09] LABS: CREATINE KINASE 3368 Units/L (39-308)
[2018-06-21] MEDS: CRESTOR TAB 10 MG PO SCH (08:47)
[2018-06-21] MEDS: ZANAFLEX PO PRN (08:47)
[2018-06-21] MEDS: SYNTHROID 50 mcg TAB PO SCH (08:47)
[2018-06-21] MEDS: PLAVIX PO SCH (08:47)
[2018-06-21] MEDS: ECOTRIN TAB 325 MG PO SCH (08:47)
[2018-06-21] MEDS: DUONEB 0.5 MG/3 MG NEB PRN ×4 (09:30→20:08)
--- NOTE | 2018-06-21 12:57 | DR.H&P ---
H&P - History & Physical for Day of: H&P Date: 06/20/18 - Chief Complaint Chief Complaint: DIFFUSE WEAKNESS, DEHYDRATION, CO PAIN ALL OVER - History of Present Illness History of Present Illness: 63 WM ER ADMISSION AFTER PRESENTING WITH CO PAIN ALL OVER, WEAKNESS. PT HAS HX OF LUNG CA AND RENAL CA WITH R NEPHRECTOMY. PT HAD BEEN ON [facility] OPIOID PAIN CONTROL AND STATES HE WAS BEEN OUT OF OXYCODONE FOR SEVERAL DAYS. [place] [address]. PT WAS ADMITTED FOR HYDRATION AND TREATMENT OF ACUTE RHABDOMYOLOSIS - Past Medical History Past Medical History: Anxiety, Arthritis, COPD, CVA, Diabetes, Hypertension Additional Medical History: Pneumonia, Lung Cancer, Renal Cancer - Past Surgical History Surgical History: Ortho Surgery Additional Surgical History: Left Nephrectomy, Left Knee Surgery - Family History Family Medical History: CA, Coronary Artery Disease - Social History Does patient currently use any type of tobacco product: Yes Have you used tobacco products in the last 12 months: Yes Type of Tobacco Use: Cigarettes How many years tobacco product used: 45 Does any household member use tobacco: No Alcohol Use: None Drug Use: None - Medications Home Medications: No Known Drug Allergies Allergy (Verified 03/19/17 22:17) CONTINUE taking the following medications aspirin [Ecotrin] 325 mg PO QDAY 06/20/18 [History] cyproheptadine 4 mg PO BIDWM 06/20/18 [History] metformin 500 mg PO BID 06/20/18 [History] oxycodone-acetaminophen 10 - 325 mg PO QID PRN 06/20/18 [History] pregabalin [Lyrica] 150 mg PO TID 06/20/18 [History] tizanidine 4 mg PO TID 06/20/18 [History] - Review of Systems Constitutional: Chills, Weakness, Malaise Eyes: No Symptoms Reported ENT: No Symptoms Reported Respiratory: Cough, Shortness of Breath, SOB with Excertion, Wheezing Cardiovascular: Light Headedness Gastrointestinal: Nausea Genitourinary: No Symptoms Reported Musculoskeletal: Back Pain, Leg Pain Skin: No Symptoms Reported Neurological: Weakness - Physical Exam Vital Signs: Temperature 98.1 F Pulse Rate [Left Brachial] 101 Pulse Rate [Brachial] 106 Pulse Rate 97 Respiratory Rate 22 Blood Pressure [Left Arm] 133/73 Blood Pressure [Right Arm] 122/70 Blood Pressure 113/62 O2 Sat by Pulse Oximetry 93 Oriented: Normal Eyes: Normal Ear: Normal Nose: Normal Throat: Normal Respiratory: Diminished Throughout Cardiovascular: Tachycardia : Normal Auscultation: Bowel Sounds: Normal Palpation: Normal Tenderness: Normal Skin: Decreased Turgur Musculoskeletal: Back:Thoracic, Back:Lumbar Psychiatric: Anxiety, Depression Affect: Anxious Speech Pattern: Clear, Appropriate - Assessment/Plan (1) Rhabdomyolysis Qualifiers: Rhabdomyolysis type: non-traumatic Qualified Code(s): M62.82 - Rhabdomyolysis Status: Acute Plan: ADMIT, GENTLE IV HYDRATION, BD CONTROL. STRICT I & OS, VERIFY HOME MEDICATION. BP CONTROL, CONTINUOUS CARDIAC MONITORING, OBTAIN LAST CT REPORTS. PAIN AND NAUSEA CONTROL, REPEAT CE, EKG ON ADMISSION. CXR ON ADMISSION, NEGRON PPLEMENTAL O2, RESP THERAPY. (2) Hx of malignant neoplasm of kidney Status: Acute (3) History of lung cancer Status: Acute (4) Diabetes Qualifiers: Diabetes mellitus type: type 2 Diabetes mellitus residential insulin use: without residential use Diabetes mellitus complication status: without complication Qualified Code(s): E11.9 - Type 2 diabetes mellitus without complications Status: Chronic (5) Hyperlipidemia Qualifiers: Hyperlipidemia type: mixed hyperlipidemia Qualified Code(s): E78.2 - Mixed hyperlipidemia Status: Chronic (6) COPD (chronic obstructive pulmonary disease) Qualifiers: COPD type: emphysema Emphysema type: unspecified Qualified Code(s): J43.9 - Emphysema, unspecified Status: Acute (7) Elevated LFTs Status: Acute - Allergies Allergies/Adverse Reactions: Allergies Allergy/AdvReac Type Severity Reaction Status Date / Time No Known Drug Allergies Allergy Verified 03/19/17 22:17
--- NOTE | 2018-06-21 13:02 | PCM.PROG ---
Progress Note - Progress Note for Day of Date of Exam: 06/21/18 - Subjective Subjective: 63 WM ER ADMISSION ON 06/20 WITH ACUTE RHABDOMYOLOSIS. PT HAD BEEN RECEIVING GENTLE IV HYDRATION WITH IMPROVEMENT IN BUN 13, CREAT 1.15 THIS AM. CK DOWN TO 6178. PT HAS INCREASED WHEEZING THIS AM, NO RALES OR RHONCHI. PLAN TO OBTAIN CT WITH CONTRAST OF CHEST, ABD AND PELVIS. DISCUSSED WITH PT AND FAMILY NEED TO FOLLOW UP WITH ONCOLOGIST, PT NEEDS UP TO DATE PET SCAN. WILL REPEAT AM LABS ADD BUDESONIDE TO NEB TREATMENTS. - Past Medical Family Social History Past Med/Fam/Surg Hx: No changes since H&P Allergies: Allergies No Known Drug Allergies Allergy (Verified 03/19/17 22:17) - Review of Systems ROS: No change since H&P - Vital Signs and I&O's Vital Signs: Temperature 98.1 F Pulse Rate [Left Brachial] 101 Pulse Rate [Brachial] 106 Pulse Rate 97 Respiratory Rate 22 Blood Pressure [Left Arm] 133/73 Blood Pressure [Right Arm] 122/70 Blood Pressure 113/62 O2 Sat by Pulse Oximetry 93 Intake and Output: Intake & Output 06/19/18 06/20/18 06/21/18 06/22/18 11:59 11:59 11:59 11:59 Intake Total 2145 / 2145 3710 / 3710 Output Total 600 / 600 1250 / 1250 Balance 1545 / 1545 2460 / 2460 - Physical Exam Oriented: Normal Eyes: Normal Ear: Normal Nose: Normal Throat: Normal Respiratory: Diminished, Wheezes Cardiovascular: Tachycardia : Normal Auscultation: Bowel Sounds: Normal Tenderness: Normal Skin: Decreased Turgur Musculoskeletal: Back:Thoracic, Back:Lumbar Psychiatric: Anxiety, Depression Affect: Anxious Speech Pattern: Clear, Appropriate - Laboratory and Diagnostics Result Diagrams: 06/21/18 04:40 06/21/18 04:40 Labs: Laboratory WBC 15.9 X10^3/uL (3.6-10.0) H 06/21/18 04:40 RBC 4.04 X10^6/uL (4.7-6.0) L 06/21/18 04:40 Hgb 11.0 g/dL (13.5-18.0) L 06/21/18 04:40 Hct 33.9 % (42.0-54.0) L 06/21/18 04:40 MCV 83.9 fL (80.0-100.0) 06/21/18 04:40 MCH 27.2 pg (27.0-34.0) 06/21/18 04:40 MCHC 32.4 g/dL (33.0-35.0) L 06/21/18 04:40 RDW 13.8 % (11.6-16.5) 06/21/18 04:40 Plt Count 323 X10^3/uL (150.0-450.0) 06/21/18 04:40 MPV 8.6 fL (7.4-11.0) 06/21/18 04:40 Neut % (Auto) 85.8 % (42.0-75.0) H 06/21/18 04:40 Lymph % (Auto) 7.2 % (21.0-51.0) L 06/21/18 04:40 [place] % (Auto) 5.9 % (0.0-13.0) 06/21/18 04:40 Eos % (Auto) 0.9 % (0.9-2.9) 06/21/18 04:40 Baso % (Auto) 0.2 % (0.2-1.0) 06/21/18 04:40 Neut # (Auto) 13.7 x10^3/uL (2.2-4.8) H 06/21/18 04:40 Lymph # (Auto) 1.1 X10^3/uL (1.3-2.9) L 06/21/18 04:40 [place] # (Auto) 0.9 x10^3/uL (0.3-0.8) H 06/21/18 04:40 Eos # (Auto) 0.1 x10^3/uL (0.0-0.2) 06/21/18 04:40 Baso # (Auto) 0.0 X10^3/uL (0.0-0.1) 06/21/18 04:40 Absolute Nucleated RBC 0.0 /100WBC 06/21/18 04:40 Sodium 139 mmol/L (136-145) 06/21/18 04:40 Corrected Sodium 140 mmol/L (136-145) 06/21/18 04:40 Potassium 4.0 mmol/L (3.5-5.1) 06/21/18 04:40 Chloride 103 mmol/L (98-107) 06/21/18 04:40 Carbon Dioxide 26.7 mmol/L (21-32) 06/21/18 04:40 BUN 13 mg/dL (7-18) 06/21/18 04:40 Creatinine 1.18 mg/dL (0.70-1.30) 06/21/18 04:40 Est GFR (MDRD) Af Amer > 60 (>60) 06/21/18 04:40 Est GFR (MDRD) Non-Af > 60 (>60) 06/21/18 04:40 Glucose 129 mg/dL (65-99) H 06/21/18 04:40 POC Glucose (mg/dL) 135 mg/dL (65-99) H 06/21/18 11:41 Calcium 8.6 mg/dL (8.5-10.1) 06/21/18 04:40 Corrected Calcium 9.9 mg/dL (8.5-10.1) 06/21/18 04:40 Total Bilirubin 0.40 mg/dL (0.2-1.0) 06/21/18 04:40 AST 121 Units/L (15-37) H 06/21/18 04:40 ALT 106 Units/L (12-78) H 06/21/18 04:40 Alkaline Phosphatase 107 Units/L (46-116) 06/21/18 04:40 Creatine Kinase 3368 Units/L (39-308) H 06/21/18 04:40 CK-MB (CK-2) 10.0 ng/mL (0-4.0) H* 06/21/18 04:40 CK/CKMB % Calc 0.3 % (<4) 06/21/18 04:40 Troponin I < 0.02 ng/mL (0-1.5) 06/21/18 04:40 Total Protein 7.3 g/dL (6.4-8.2) 06/21/18 04:40 Albumin 2.4 g/dL (3.4-5.0) L 06/21/18 04:40 Globulin 4.9 g/dL (2.5-4.5) H 06/21/18 04:40 Albumin/Globulin Ratio 0.5 Ratio (1.1-2.1) L 06/21/18 04:40 Specimen Type Clean catch urine 06/20/18 05:33 Urine Color Yellow (YELLOW) 06/20/18 05:33 Urine Appearance Clear (CLEAR) 06/20/18 05:33 Urine pH 6.0 (5.0 - 8.0) 06/20/18 05:33 Ur Specific [place] 1.010 (1.000-1.030) 06/20/18 05:33 Urine Protein 1+ (NEGATIVE) 06/20/18 05:33 Urine Glucose (UA) Negative (NEGATIVE) 06/20/18 05:33 Urine Ketones Negative (NEGATIVE) 06/20/18 05:33 Urine Occult Blood 2+ (NEGATIVE) 06/20/18 05:33 Urine Nitrite Negative (NEGATIVE) 06/20/18 05:33 Urine Bilirubin Negative (NEGATIVE) 06/20/18 05:33 Urine Urobilinogen Normal (NORMAL) 06/20/18 05:33 Ur Leukocyte Esterase Negative (NEGATIVE) 06/20/18 05:33 Urine RBC 0-2 /HPF (NONE SEEN) 06/20/18 05:33 Urine WBC None seen /HPF (NONE SEEN) 06/20/18 05:33 Ur Squamous Epith Cells Rare /HPF (NEGATIVE) 06/20/18 05:33 Urine Bacteria Negative /HPF (NEGATIVE) 06/20/18 05:33 Ur Culture Indicated? No/not indicated 06/20/18 05:33 - Plan (1) Rhabdomyolysis Status: Acute Qualifiers: Rhabdomyolysis type: non-traumatic Qualified Code(s): M62.82 - Rhabdomyolysis Plan: GENTLE IV HYDRATION, BD CONTROL. STRICT I & OS, VERIFY HOME MEDICATION. BP CONTROL, CONTINUOUS CARDIAC MONITORING, OBTAIN LAST CT REPORTS. CT CHEST ABD PELVIS WITH CONTRAST ORDERED. PAIN AND NAUSEA CONTROL, REPEAT CE. SUPPLEMENTAL O2, RESP THERAPY. (2) Hx of malignant neoplasm of kidney Status: Acute (3) History of lung cancer Status: Acute (4) Diabetes Status: Chronic Qualifiers: Diabetes mellitus type: type 2 Diabetes mellitus prison insulin use: without terminal system operator use Diabetes mellitus complication status: without complication Qualified Code(s): E11.9 - Type 2 diabetes mellitus without complications (5) Hyperlipidemia Status: Chronic Qualifiers: Hyperlipidemia type: mixed hyperlipidemia Qualified Code(s): E78.2 - Mixed hyperlipidemia (6) COPD (chronic obstructive pulmonary disease) Status: Acute Qualifiers: COPD type: emphysema Emphysema type: unspecified Qualified Code(s): J43.9 - Emphysema, unspecified (7) Elevated LFTs Status: Acute
[2018-06-21] MEDS ORDERED: NS 100 ML IV + SPIKE MINIBAG* 100 ML IV ONE (13:29)
[2018-06-21] MEDS: PULMICORT NEB TX 0.5 MG NEB SCH ×2 (16:54→20:07)
[2018-06-21] MEDS: MORPHINE SULFATE INJ 2 MG INJ IVP PRN ×2 (17:58→23:35)
[2018-06-21] MEDS: SNACK - Diabetic Appropriate PO SCH (21:04)
[2018-06-21 22:12] LABS: TROPONIN I < 0.02 ng/mL (0-1.5)
[2018-06-21 22:15] LABS: CREATINE KINASE MB 10.2 ng/mL (0-4.0)
[2018-06-21 22:16] LABS: CKMB % 0.4 % (<4)
[2018-06-21 22:17] LABS: CREATINE KINASE 2447 Units/L (39-308)
[2018-06-22] MEDS: ZANAFLEX PO PRN ×2 (00:14→21:04)
[2018-06-22] MEDS: REQUIP PO SCH ×3 (05:24→21:03)
[2018-06-22] MEDS: NS 1000 ML 1,000 ML IV SCH ×2 (05:24→19:52)
--- NOTE | 2018-06-22 05:59 | CT ---
CT chest with contrast CT abdomen and pelvis with contrast Indication: Elevated liver function test, COPD and rhabdomyolysis. Comparison: 08/21/2017 CT abdomen and pelvis. 03/20/2017 CT chest Technique: Helical images through the chest, abdomen and pelvis after IV contrast. Coronal and sagittal reformats provided. Findings: Chest: Patchy right upper lung opacity with scarring and peribronchial thickening is almost unchanged from the study from 2017. There is no pneumothorax or effusion. There are new patchy tree-in-bud opacities in the right lower lung and in the lingula. Mild to moderate COPD centrilobular nature is noted. Aortic arch and branch vessels shows scattered calcified plaque pulmonary arteries are grossly normal. No mass. Heart size is normal. Chest wall soft tissues are normal. Abdomen: Left kidney is absent. The liver contains left lobe cyst. Gallbladder and spleen show no acute abnormality with splenic cyst again noted. Vascular calcifications are noted. Stomach and small bowel are normal. Colonic diverticulosis noted. Appendix is normal. Right renal cysts are noted without hydronephrosis. Pelvis: There is right inguinal fat containing hernia. Urinary bladder is thick-walled. The rectum is normal. Prostate gland is normal. Review of bone windows shows pars defects at L5 with anterolisthesis of L5 on S1. Spinal canal stenosis results. Impression: 1. Patchy right lower lung opacities and peribronchial thickening, as well as lingular opacities are concerning for multifocal pneumonia. Follow-up to resolution to exclude underlying neoplasia 2. COPD change, vascular plaque, spine DJD, and other incidental findings in the abdomen as above. Diverticulosis, renal and splenic cysts, and right inguinal fat containing hernia 3. Thick-walled urinary bladder. Correlate for signs of urinary tract infection. Reported By:
[2018-06-22] MEDS: MORPHINE SULFATE INJ 2 MG INJ IVP PRN ×3 (06:07→19:04)
[2018-06-22 06:18] LABS: BASOPHILS % (AUTO) 0 % (0.2-1.0); EOSINOPHILS # (AUTO) 0.1 x10^3/uL (0.0-0.2); EOSINOPHILS % (AUTO) 0.5 % (0.9-2.9); HEMATOCRIT 31.8 % (42.0-54.0); HEMOGLOBIN 10.5 g/dL (13.5-18.0); LYMPHOCYTES % (AUTO) 5.4 % (21.0-51.0); MEAN CORPUSCULAR HEMOGLOBIN 27.1 pg (27.0-34.0); MEAN CORPUSCULAR HGB CONC 32.9 g/dL (33.0-35.0); MEAN CORPUSCULAR VOLUME 82.3 fL (80.0-100.0); MONOCYTES % (AUTO) 5.8 % (0.0-13.0); NEUTROPHILS # (AUTO) 15.5 x10^3/uL (2.2-4.8); NEUTROPHILS % (AUTO) 88.3 % (42.0-75.0); PLATELET COUNT 316 X10^3/uL (150.0-450.0); RED BLOOD COUNT 3.86 X10^6/uL (4.7-6.0); RED CELL DISTRIBUTION WIDTH 13.8 % (11.6-16.5); WHITE BLOOD COUNT 17.6 X10^3/uL (3.6-10.0)
[2018-06-22 06:33] LABS: ALANINE AMINOTRANSFERASE 93 Units/L (12-78); ALBUMIN 2.3 g/dL (3.4-5.0); ALKALINE PHOSPHATASE 102 Units/L (46-116); ASPARTATE AMINO TRANSFERASE 80 Units/L (15-37); BLOOD UREA NITROGEN 11 mg/dL (7-18); CALCIUM 8.8 mg/dL (8.5-10.1); CARBON DIOXIDE 23.6 mmol/L (21-32); CHLORIDE 103 mmol/L (98-107); COR CA(FOR HYPOALB) 10.2 mg/dL (8.5-10.1); COR NA(FOR HYPERGLY) 140 mmol/L (136-145); CREATININE 1.09 mg/dL (0.70-1.30); SODIUM 139 mmol/L (136-145); TOTAL PROTEIN 7.2 g/dL (6.4-8.2); eGFR NON BLACK RACES > 60 (>60)
[2018-06-22] MEDS: PULMICORT NEB TX 0.5 MG NEB SCH ×2 (09:01→20:15)
[2018-06-22] MEDS: DUONEB 0.5 MG/3 MG NEB PRN ×4 (09:01→20:15)
[2018-06-22] MEDS: CRESTOR TAB 10 MG PO SCH (09:21)
[2018-06-22] MEDS: ECOTRIN TAB 325 MG PO SCH (09:21)
[2018-06-22] MEDS: PLAVIX PO SCH (09:22)
[2018-06-22] MEDS: SYNTHROID 50 mcg TAB PO SCH (09:22)
[2018-06-22] MEDS ORDERED: SALINE 3% 15 ML NEB TX NEB ONE (09:28)
--- NOTE | 2018-06-22 13:10 | PCM.PROG ---
Progress Note - Progress Note for Day of Date of Exam: 06/22/18 - Subjective Subjective: WAS ADMITTED ON 06/20 WITH ACUTE RHABDOMYOLYSIS, ELEVATED LFTS, COPD, AND DM. 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 TODAY, HE IS ALERT AND ORIENTED, LYING IN BED ON MORNING ROUNDS. HE REPORTS WEAKNESS AND SHORTNESS OF BREATH. ON EXAMINATION, HEART IS REGULAR IN RATE AND RHYTHM. BILATERAL LUNGS ARE NOTED WITH DIMINISHED LUNG SOUNDS THROUGHOUT. ABDOMEN IS ROUND, SOFT, AND NON-TENDER WITH NORMAL BOWEL SOUNDS NOTED IN ALL QUADRANTS. HIS VITALS THIS MORNING ARE 97.9-100-20-95%-155/63. LABS WERE OBTAINED. ABNORMAL LAB VALUES INCLUDE THE FOLLOWING: WBC INCREASED TO 17.6, RBC 3.86, HGB 10.5, HCT 31.8, GLUCOSE 128, AST 80, ALT 93, CREATINE KINASE 2447, CK-MB 10.2, ALBUMIN 2.3, GLOBULIN 4.9. A CHEST CT WITH CONTRAST WAS OBTAINED AND REVEALED: Patchy right lower lung opacities and peribronchial thickening, as well as lingular opacities are concerning for multifocal pneumonia. Follow-up to resolution to exclude underlying neoplasia. COPD change, vascular plaque, spine DJD, and other incidental findings in the abdomen as above. Diverticulosis, renal and splenic cysts, and right inguinal fat containing hernia. HE IS CURRENTLY RECEIVING NORMAL SALINE AT 125ML/HR AND RESPIRATORY TREATMENTS. TODAY, WE WILL START FORTAZ IV AND LEVAQUIN IV. WE WILL HOLD HIS CRESTOR AT THIS TIME. OTHERWISE, WE PLAN TO FOLLOW UP WITH AM LABS AND CHEST XRAY AND CONTINUE TO MONITOR. - Past Medical Family Social History Past Med/Fam/Surg Hx: No changes since H&P Allergies: Allergies No Known Drug Allergies Allergy (Verified 03/19/17 22:17) - Review of Systems ROS: No change since H&P - Vital Signs and I&O's Vital Signs: Temperature 97.9 F Pulse Rate [Left Brachial] 101 Pulse Rate [Brachial] 107 Pulse Rate 97 Respiratory Rate 20 Blood Pressure [Left Arm] 133/73 Blood Pressure [Right Arm] 155/63 Blood Pressure 113/62 O2 Sat by Pulse Oximetry 96 Intake and Output: Intake & Output 06/20/18 06/21/18 06/22/18 06/23/18 11:59 11:59 11:59 11:59 Intake Total 2145 / 2145 3710 / 3710 3698 / 3698 Output Total 600 / 600 1250 / 1250 575 / 575 Balance 1545 / 1545 2460 / 2460 3123 / 3123 - Physical Exam Oriented: Normal Eyes: Normal Ear: Normal Nose: Normal Throat: Normal Respiratory: Diminished, Wheezes Cardiovascular: Tachycardia : Normal Auscultation: Bowel Sounds: Normal Palpation: Normal Tenderness: Normal Skin: Decreased Turgur Musculoskeletal: Back:Thoracic, Back:Lumbar Psychiatric: Anxiety, Depression Affect: Anxious Speech Pattern: Clear, Appropriate - Laboratory and Diagnostics Result Diagrams: 06/22/18 06:00 06/22/18 06:00 Labs: Laboratory WBC 17.6 X10^3/uL (3.6-10.0) H 06/22/18 06:00 RBC 3.86 X10^6/uL (4.7-6.0) L 06/22/18 06:00 Hgb 10.5 g/dL (13.5-18.0) L 06/22/18 06:00 Hct 31.8 % (42.0-54.0) L 06/22/18 06:00 MCV 82.3 fL (80.0-100.0) 06/22/18 06:00 MCH 27.1 pg (27.0-34.0) 06/22/18 06:00 MCHC 32.9 g/dL (33.0-35.0) L 06/22/18 06:00 RDW 13.8 % (11.6-16.5) 06/22/18 06:00 Plt Count 316 X10^3/uL (150.0-450.0) 06/22/18 06:00 MPV 8.0 fL (7.4-11.0) 06/22/18 06:00 Neut % (Auto) 88.3 % (42.0-75.0) H 06/22/18 06:00 Lymph % (Auto) 5.4 % (21.0-51.0) L 06/22/18 06:00 [place] % (Auto) 5.8 % (0.0-13.0) 06/22/18 06:00 Eos % (Auto) 0.5 % (0.9-2.9) L 06/22/18 06:00 Baso % (Auto) 0 % (0.2-1.0) L 06/22/18 06:00 Neut # (Auto) 15.5 x10^3/uL (2.2-4.8) H 06/22/18 06:00 Lymph # (Auto) 1.0 X10^3/uL (1.3-2.9) L 06/22/18 06:00 [place] # (Auto) 1.0 x10^3/uL (0.3-0.8) H 06/22/18 06:00 Eos # (Auto) 0.1 x10^3/uL (0.0-0.2) 06/22/18 06:00 Baso # (Auto) 0.0 X10^3/uL (0.0-0.1) 06/22/18 06:00 Absolute Nucleated RBC 0.0 /100WBC 06/22/18 06:00 Sodium 139 mmol/L (136-145) 06/22/18 06:00 Corrected Sodium 140 mmol/L (136-145) 06/22/18 06:00 Potassium 4.0 mmol/L (3.5-5.1) 06/22/18 06:00 Chloride 103 mmol/L (98-107) 06/22/18 06:00 Carbon Dioxide 23.6 mmol/L (21-32) 06/22/18 06:00 BUN 11 mg/dL (7-18) 06/22/18 06:00 Creatinine 1.09 mg/dL (0.70-1.30) 06/22/18 06:00 Est GFR (MDRD) Af Amer > 60 (>60) 06/22/18 06:00 Est GFR (MDRD) Non-Af > 60 (>60) 06/22/18 06:00 Glucose 128 mg/dL (65-99) H 06/22/18 06:00 POC Glucose (mg/dL) 128 mg/dL (65-99) H 06/21/18 20:32 Calcium 8.8 mg/dL (8.5-10.1) 06/22/18 06:00 Corrected Calcium 10.2 mg/dL (8.5-10.1) H 06/22/18 06:00 Total Bilirubin 0.40 mg/dL (0.2-1.0) 06/22/18 06:00 AST 80 Units/L (15-37) H 06/22/18 06:00 ALT 93 Units/L (12-78) H 06/22/18 06:00 Alkaline Phosphatase 102 Units/L (46-116) 06/22/18 06:00 Creatine Kinase 2447 Units/L (39-308) H 06/21/18 21:22 CK-MB (CK-2) 10.2 ng/mL (0-4.0) H* 06/21/18 21:22 CK/CKMB % Calc 0.4 % (<4) 06/21/18 21:22 Troponin I < 0.02 ng/mL (0-1.5) 06/21/18 21:22 Total Protein 7.2 g/dL (6.4-8.2) 06/22/18 06:00 Albumin 2.3 g/dL (3.4-5.0) L 06/22/18 06:00 Globulin 4.9 g/dL (2.5-4.5) H 06/22/18 06:00 Albumin/Globulin Ratio 0.5 Ratio (1.1-2.1) L 06/22/18 06:00 Specimen Type Clean catch urine 06/20/18 05:33 Urine Color Yellow (YELLOW) 06/20/18 05:33 Urine Appearance Clear (CLEAR) 06/20/18 05:33 Urine pH 6.0 (5.0 - 8.0) 06/20/18 05:33 Ur Specific [place] 1.010 (1.000-1.030) 06/20/18 05:33 Urine Protein 1+ (NEGATIVE) 06/20/18 05:33 Urine Glucose (UA) Negative (NEGATIVE) 06/20/18 05:33 Urine Ketones Negative (NEGATIVE) 06/20/18 05:33 Urine Occult Blood 2+ (NEGATIVE) 06/20/18 05:33 Urine Nitrite Negative (NEGATIVE) 06/20/18 05:33 Urine Bilirubin Negative (NEGATIVE) 06/20/18 05:33 Urine Urobilinogen Normal (NORMAL) 06/20/18 05:33 Ur Leukocyte Esterase Negative (NEGATIVE) 06/20/18 05:33 Urine RBC 0-2 /HPF (NONE SEEN) 06/20/18 05:33 Urine WBC None seen /HPF (NONE SEEN) 06/20/18 05:33 Ur Squamous Epith Cells Rare /HPF (NEGATIVE) 06/20/18 05:33 Urine Bacteria Negative /HPF (NEGATIVE) 06/20/18 05:33 Ur Culture Indicated? No/not indicated 06/20/18 05:33 - Plan (1) Rhabdomyolysis Status: Acute Qualifiers: Rhabdomyolysis type: non-traumatic Qualified Code(s): M62.82 - Rhabdomyolysis Plan: GENTLE IV HYDRATION, BD CONTROL. STRICT I & OS, VERIFY HOME MEDICATION. BP CONTROL, CONTINUOUS CARDIAC MONITORING. PAIN AND NAUSEA CONTROL, REPEAT CE. SUPPLEMENTAL O2, RESP THERAPY. (2) COPD (chronic obstructive pulmonary disease) Status: Acute Qualifiers: COPD type: chronic bronchitis Chronic bronchitis type: simple Qualified Code(s): J41.0 - Simple chronic bronchitis Plan: RESPIRATORY [place], SUPPLEMENTAL OXYGEN (3) Diabetes mellitus Status: Acute Qualifiers: Diabetes mellitus type: type 2 Diabetes mellitus termite inspector insulin use: without [place] [facility] use Diabetes mellitus complication status: without complication Qualified Code(s): E11.9 - Type 2 diabetes mellitus without complications (4) Pneumonia Status: Acute Qualifiers: Pneumonia type: due to unspecified organism Laterality: right Lung location: middle lobe of lung Qualified Code(s): J18.1 - Lobar pneumonia, unspecified organism Plan: IV FORTAZ, IV LEVAQUIN, RESPIRATORY [place], SUPPLEMENTAL OXYGEN, CONTINUE TO MONITOR
[2018-06-22] MEDS: FORTAZ or TAZICEF VIAL INJ IVP SCH ×3 (14:06→22:19)
[2018-06-22] MEDS: LEVAQUIN PREMIX IV 750 MG 750 MG/150 ML BAG IV SCH (14:13)
[2018-06-22] MEDS: SNACK - Diabetic Appropriate PO SCH (20:49)
[2018-06-22] MEDS: ROXICODONE TAB 5 MG PO PRN (21:04)
[2018-06-22 21:56] LABS: TROPONIN I < 0.02 ng/mL (0-1.5)
[2018-06-22 21:59] LABS: CREATINE KINASE MB 8.5 ng/mL (0-4.0)
[2018-06-22 22:00] LABS: CKMB % 0.8 % (<4); CREATINE KINASE 1094 Units/L (39-308)
[2018-06-22] MEDS ORDERED: RESTORIL CAP 15 MG PO PRN (23:26)
[2018-06-22] MEDS ORDERED: RESTORIL CAP 15 MG PO ONE (23:30)
[2018-06-23] MEDS: MORPHINE SULFATE INJ 2 MG INJ IVP PRN ×2 (00:56→08:30)
[2018-06-23] MEDS: NS 1000 ML 1,000 ML IV SCH ×6 (03:10→19:16)
[2018-06-23] MEDS: ROXICODONE TAB 5 MG PO PRN ×3 (05:32→21:13)
[2018-06-23] MEDS: REQUIP PO SCH ×3 (05:32→21:02)
[2018-06-23] MEDS: FORTAZ or TAZICEF VIAL INJ IVP SCH ×3 (05:32→21:01)
[2018-06-23 06:23] LABS: BASOPHILS # (AUTO) 0.1 X10^3/uL (0.0-0.1); BASOPHILS % (AUTO) 0.6 % (0.2-1.0); EOSINOPHILS # (AUTO) 0.2 x10^3/uL (0.0-0.2); EOSINOPHILS % (AUTO) 1.4 % (0.9-2.9); HEMATOCRIT 33.5 % (42.0-54.0); HEMOGLOBIN 10.7 g/dL (13.5-18.0); MEAN CORPUSCULAR HGB CONC 32.1 g/dL (33.0-35.0); MEAN CORPUSCULAR VOLUME 84.3 fL (80.0-100.0); MEAN PLATELET VOLUME 8.5 fL (7.4-11.0); MONOCYTES # (AUTO) 0.9 x10^3/uL (0.3-0.8); MONOCYTES % (AUTO) 6.2 % (0.0-13.0); NEUTROPHILS # (AUTO) 12.7 x10^3/uL (2.2-4.8); NEUTROPHILS % (AUTO) 84.8 % (42.0-75.0); PLATELET COUNT 327 X10^3/uL (150.0-450.0); RED BLOOD COUNT 3.97 X10^6/uL (4.7-6.0)
--- NOTE | 2018-06-23 06:47 | RAD ---
HISTORY: Shortness of breath Study: Chest AP portable Comparison: 06/20/2018, CT chest 06/21/2018 and multiple priors Findings: The heart is within normal limits in size. No congestive heart failure is noted. The lungs are hyperinflated consistent with COPD. Right-sided perihilar opacity representing atelectasis chronic infiltrate and scarring is identified. This area was obscured by rotation on the prior examination. This has been present since 2016. It has improved slightly since 2016. Patchy infiltrates are present in the lower lobes bilaterally suggestive of bronchopneumonia. No pleural effusions are identified. The bony thorax is unremarkable. IMPRESSION: Stable right perihilar opacity likely due to chronic atelectasis and scarring present since 2016 although slightly improved since than Bibasilar infiltrates suggestive of bronchopneumonia COPD Reported By:
[2018-06-23 06:57] LABS: ALANINE AMINOTRANSFERASE 89 Units/L (12-78); ALBUMIN 2.3 g/dL (3.4-5.0); ALKALINE PHOSPHATASE 106 Units/L (46-116); ASPARTATE AMINO TRANSFERASE 62 Units/L (15-37); BLOOD UREA NITROGEN 11 mg/dL (7-18); CALCIUM 8.8 mg/dL (8.5-10.1); CARBON DIOXIDE 25.6 mmol/L (21-32); CHLORIDE 102 mmol/L (98-107); COR CA(FOR HYPOALB) 10.2 mg/dL (8.5-10.1); CREATININE 1.07 mg/dL (0.70-1.30); SODIUM 138 mmol/L (136-145); TOTAL PROTEIN 7.4 g/dL (6.4-8.2); eGFR NON BLACK RACES > 60 (>60)
[2018-06-23 07:29] LABS: CREATINE KINASE 747 Units/L (39-308); TROPONIN I < 0.02 ng/mL (0-1.5)
[2018-06-23 07:31] LABS: CREATINE KINASE MB 7.8 ng/mL (0-4.0)
[2018-06-23] MEDS: PULMICORT NEB TX 0.5 MG NEB SCH ×2 (08:14→20:04)
[2018-06-23] MEDS: DUONEB 0.5 MG/3 MG NEB PRN ×4 (08:14→20:04)
[2018-06-23] MEDS: LEVAQUIN PREMIX IV 750 MG 750 MG/150 ML BAG IV SCH (08:30)
[2018-06-23] MEDS: SYNTHROID 50 mcg TAB PO SCH (08:33)
[2018-06-23] MEDS: ECOTRIN TAB 325 MG PO SCH (08:33)
[2018-06-23] MEDS: PLAVIX PO SCH (08:34)
[2018-06-23] MEDS ORDERED: PHARMACY CONSULT - TPN XX SCH (11:00)
[2018-06-23] MEDS: ALBUMIN HUMAN 25%- 100 ML 100 ML IV SCH (11:46)
[2018-06-23] MEDS: [UNRECOGNIZED DRUG - NUTRITION] IV SCH ×4 (14:05)
--- NOTE | 2018-06-23 19:03 | PCM.PROG ---
Progress Note - Progress Note for Day of Date of Exam: 06/23/18 - Subjective Subjective: WAS ADMITTED ON 06/20 WITH ACUTE RHABDOMYOLYSIS, ELEVATED LFTS, COPD, AND DM. 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 TODAY, HE IS ALERT AND ORIENTED, LYING IN BED ON MORNING ROUNDS. HE REPORTS WEAKNESS AND SHORTNESS OF BREATH. ON EXAMINATION, HEART IS REGULAR IN RATE AND RHYTHM. BILATERAL LUNGS ARE NOTED WITH DIMINISHED LUNG SOUNDS THROUGHOUT. ABDOMEN IS ROUND, SOFT, AND NON-TENDER WITH NORMAL BOWEL SOUNDS NOTED IN ALL QUADRANTS. HIS VITALS THIS MORNING ARE 97.8-86-89-90NC-144/84. LABS WERE OBTAINED. ABNORMAL LAB VALUES INCLUDE THE FOLLOWING: WBC 15.0, RBC 3.97, HGB 10.7, HCT 33.5, GLUCOSE 100, AST 62, ALT 89, CREATINE KINASE 747, CK-MB 7.8, ALBUMIN 2.3, GLOBULIN 5.1. A CHEST XRAY WAS OBTAINED TODAY AND REVEALED: Stable right perihilar opacity likely due to chronic atelectasis and scarring present since 2015 although slightly improved since than. Bibasilar infiltrates suggestive of bronchopneumonia. COPD. HE IS CURRENTLY RECEIVING NORMAL SALINE AT 125ML/HR, IV FORTAZ, IV LEVAQUIN, AND RESPIRATORY TREATMENTS. TODAY, WE WILL START ALBUMIN 25% IV DAILY AND TPN. OTHERWISE, WE PLAN TO FOLLOW UP WITH AM LABS AND CHEST XRAY AND CONTINUE TO MONITOR. - Past Medical Family Social History Past Med/Fam/Surg Hx: No changes since H&P Allergies: Allergies No Known Drug Allergies Allergy (Verified 03/19/17 22:17) - Review of Systems ROS: No change since H&P - Vital Signs and I&O's Vital Signs: Temperature 98.0 F Pulse Rate [Left Brachial] 101 Pulse Rate [Brachial] 94 Pulse Rate 88 Respiratory Rate 20 Blood Pressure [Left Arm] 133/73 Blood Pressure [Right Arm] 138/82 Blood Pressure 113/62 O2 Sat by Pulse Oximetry 99 Intake and Output: Intake & Output 06/21/18 06/22/18 06/23/18 06/24/18 11:59 11:59 11:59 11:59 Intake Total 3710 / 3710 3698 / 3698 1160 / 1160 1840 / 1840 Output Total 1250 / 1250 575 / 575 1150 / 1150 / Balance 2460 / 2460 3123 / 3123 1835 / 1835 - Physical Exam Oriented: Normal Eyes: Normal Ear: Normal Nose: Normal Throat: Normal Respiratory: Diminished, Wheezes Cardiovascular: Tachycardia : Normal Auscultation: Bowel Sounds: Normal Palpation: Normal Tenderness: Normal Skin: Decreased Turgur Musculoskeletal: Back:Thoracic, Back:Lumbar Psychiatric: Anxiety, Depression Affect: Anxious Speech Pattern: Clear, Appropriate - Laboratory and Diagnostics Result Diagrams: 06/23/18 05:45 06/23/18 05:45 Labs: Laboratory WBC 15.0 X10^3/uL (3.6-10.0) H 06/23/18 05:45 RBC 3.97 X10^6/uL (4.7-6.0) L 06/23/18 05:45 Hgb 10.7 g/dL (13.5-18.0) L 06/23/18 05:45 Hct 33.5 % (42.0-54.0) L 06/23/18 05:45 MCV 84.3 fL (80.0-100.0) 06/23/18 05:45 MCH 27.0 pg (27.0-34.0) 06/23/18 05:45 MCHC 32.1 g/dL (33.0-35.0) L 06/23/18 05:45 RDW 14.0 % (11.6-16.5) 06/23/18 05:45 Plt Count 327 X10^3/uL (150.0-450.0) 06/23/18 05:45 MPV 8.5 fL (7.4-11.0) 06/23/18 05:45 Neut % (Auto) 84.8 % (42.0-75.0) H 06/23/18 05:45 Lymph % (Auto) 7.0 % (21.0-51.0) L 06/23/18 05:45 [place] % (Auto) 6.2 % (0.0-13.0) 06/23/18 05:45 Eos % (Auto) 1.4 % (0.9-2.9) 06/23/18 05:45 Baso % (Auto) 0.6 % (0.2-1.0) 06/23/18 05:45 Neut # (Auto) 12.7 x10^3/uL (2.2-4.8) H 06/23/18 05:45 Lymph # (Auto) 1.0 X10^3/uL (1.3-2.9) L 06/23/18 05:45 [place] # (Auto) 0.9 x10^3/uL (0.3-0.8) H 06/23/18 05:45 Eos # (Auto) 0.2 x10^3/uL (0.0-0.2) 06/23/18 05:45 Baso # (Auto) 0.1 X10^3/uL (0.0-0.1) 06/23/18 05:45 Absolute Nucleated RBC 0.0 /100WBC 06/23/18 05:45 Sodium 138 mmol/L (136-145) 06/23/18 05:45 Corrected Sodium TNP 06/23/18 05:45 Potassium 3.8 mmol/L (3.5-5.1) 06/23/18 05:45 Chloride 102 mmol/L (98-107) 06/23/18 05:45 Carbon Dioxide 25.6 mmol/L (21-32) 06/23/18 05:45 BUN 11 mg/dL (7-18) 06/23/18 05:45 Creatinine 1.07 mg/dL (0.70-1.30) 06/23/18 05:45 Est GFR (MDRD) Af Amer > 60 (>60) 06/23/18 05:45 Est GFR (MDRD) Non-Af > 60 (>60) 06/23/18 05:45 Glucose 100 mg/dL (65-99) H 06/23/18 05:45 POC Glucose (mg/dL) 136 mg/dL (65-99) H 06/23/18 17:35 Calcium 8.8 mg/dL (8.5-10.1) 06/23/18 05:45 Corrected Calcium 10.2 mg/dL (8.5-10.1) H 06/23/18 05:45 Total Bilirubin 0.40 mg/dL (0.2-1.0) 06/23/18 05:45 AST 62 Units/L (15-37) H 06/23/18 05:45 ALT 89 Units/L (12-78) H 06/23/18 05:45 Alkaline Phosphatase 106 Units/L (46-116) 06/23/18 05:45 Creatine Kinase 747 Units/L (39-308) H 06/23/18 05:45 CK-MB (CK-2) 7.8 ng/mL (0-4.0) H* 06/23/18 05:45 CK/CKMB % Calc 1.0 % (<4) 06/23/18 05:45 Troponin I < 0.02 ng/mL (0-1.5) 06/23/18 05:45 Total Protein 7.4 g/dL (6.4-8.2) 06/23/18 05:45 Albumin 2.3 g/dL (3.4-5.0) L 06/23/18 05:45 Globulin 5.1 g/dL (2.5-4.5) H 06/23/18 05:45 Albumin/Globulin Ratio 0.5 Ratio (1.1-2.1) L 06/23/18 05:45 Prealbumin 9.7 mg/dL (18-35.7) L 06/23/18 05:45 Specimen Type Clean catch urine 06/20/18 05:33 Urine Color Yellow (YELLOW) 06/20/18 05:33 Urine Appearance Clear (CLEAR) 06/20/18 05:33 Urine pH 6.0 (5.0 - 8.0) 06/20/18 05:33 Ur Specific [place] 1.010 (1.000-1.030) 06/20/18 05:33 Urine Protein 1+ (NEGATIVE) 06/20/18 05:33 Urine Glucose (UA) Negative (NEGATIVE) 06/20/18 05:33 Urine Ketones Negative (NEGATIVE) 06/20/18 05:33 Urine Occult Blood 2+ (NEGATIVE) 06/20/18 05:33 Urine Nitrite Negative (NEGATIVE) 06/20/18 05:33 Urine Bilirubin Negative (NEGATIVE) 06/20/18 05:33 Urine Urobilinogen Normal (NORMAL) 06/20/18 05:33 Ur Leukocyte Esterase Negative (NEGATIVE) 06/20/18 05:33 Urine RBC 0-2 /HPF (NONE SEEN) 06/20/18 05:33 Urine WBC None seen /HPF (NONE SEEN) 06/20/18 05:33 Ur Squamous Epith Cells Rare /HPF (NEGATIVE) 06/20/18 05:33 Urine Bacteria Negative /HPF (NEGATIVE) 06/20/18 05:33 Ur Culture Indicated? No/not indicated 06/20/18 05:33 - Plan (1) Rhabdomyolysis Status: Acute Qualifiers: Rhabdomyolysis type: non-traumatic Qualified Code(s): M62.82 - Rhabdomyolysis Plan: GENTLE IV HYDRATION, BD CONTROL. STRICT I & OS, VERIFY HOME MEDICATION. BP CONTROL, CONTINUOUS CARDIAC MONITORING. PAIN AND NAUSEA CONTROL, REPEAT CE. SUPPLEMENTAL O2, RESP THERAPY. (2) COPD (chronic obstructive pulmonary disease) Status: Acute Qualifiers: COPD type: chronic bronchitis Chronic bronchitis type: simple Qualified Code(s): J41.0 - Simple chronic bronchitis Plan: RESPIRATORY [place], SUPPLEMENTAL OXYGEN (3) Diabetes mellitus Status: Acute Qualifiers: Diabetes mellitus type: type 2 Diabetes mellitus care home insulin use: without termite inspector use Diabetes mellitus complication status: without complication Qualified Code(s): E11.9 - Type 2 diabetes mellitus without complications (4) Pneumonia Status: Acute Qualifiers: Pneumonia type: due to unspecified organism Laterality: right Lung location: middle lobe of lung Qualified Code(s): J18.1 - Lobar pneumonia, unspecified organism Plan: IV FORTAZ, IV LEVAQUIN, RESPIRATORY [place], SUPPLEMENTAL OXYGEN, CONTINUE TO MONITOR (5) Hypoalbuminemia Status: Acute Plan: ALBUMIN 25% IV DAILY, TPN, CONTINUE TO MONITOR
[2018-06-23] MEDS: SNACK - Diabetic Appropriate PO SCH (20:53)
[2018-06-23] MEDS: LIPOSYN III 20% 100ML 100 ML IV SCH (20:56)
[2018-06-23] MEDS: ZANAFLEX PO PRN ×2 (20:56→21:01)
[2018-06-24] MEDS: [UNRECOGNIZED DRUG - NUTRITION] IV SCH ×8 (02:47→18:11)
[2018-06-24] MEDS: NS 1000 ML 1,000 ML IV SCH ×3 (05:50→20:26)
[2018-06-24] MEDS: REQUIP PO SCH ×3 (05:51→21:05)
[2018-06-24] MEDS: FORTAZ or TAZICEF VIAL INJ IVP SCH ×3 (05:51→21:05)
[2018-06-24] MEDS: MORPHINE SULFATE INJ 2 MG INJ IVP PRN (06:03)
[2018-06-24 06:18] LABS: BASOPHILS # (AUTO) 0.1 X10^3/uL (0.0-0.1); BASOPHILS % (AUTO) 0.7 % (0.2-1.0); EOSINOPHILS # (AUTO) 0.3 x10^3/uL (0.0-0.2); EOSINOPHILS % (AUTO) 2.2 % (0.9-2.9); HEMATOCRIT 31.8 % (42.0-54.0); HEMOGLOBIN 10.3 g/dL (13.5-18.0); LYMPHOCYTES % (AUTO) 8.7 % (21.0-51.0); MEAN CORPUSCULAR HGB CONC 32.4 g/dL (33.0-35.0); MEAN CORPUSCULAR VOLUME 83.4 fL (80.0-100.0); MEAN PLATELET VOLUME 8.9 fL (7.4-11.0); MONOCYTES # (AUTO) 0.6 x10^3/uL (0.3-0.8); MONOCYTES % (AUTO) 5.6 % (0.0-13.0); NEUTROPHILS # (AUTO) 9.5 x10^3/uL (2.2-4.8); NEUTROPHILS % (AUTO) 82.8 % (42.0-75.0); PLATELET COUNT 329 X10^3/uL (150.0-450.0); RED BLOOD COUNT 3.82 X10^6/uL (4.7-6.0); RED CELL DISTRIBUTION WIDTH 13.7 % (11.6-16.5); WHITE BLOOD COUNT 11.5 X10^3/uL (3.6-10.0)
[2018-06-24 06:27] LABS: ALANINE AMINOTRANSFERASE 82 Units/L (12-78); ALBUMIN 2.5 g/dL (3.4-5.0); ALKALINE PHOSPHATASE 94 Units/L (46-116); ASPARTATE AMINO TRANSFERASE 47 Units/L (15-37); BLOOD UREA NITROGEN 15 mg/dL (7-18); CALCIUM 9.1 mg/dL (8.5-10.1); CARBON DIOXIDE 27.5 mmol/L (21-32); CHLORIDE 102 mmol/L (98-107); COR CA(FOR HYPOALB) 10.3 mg/dL (8.5-10.1); COR NA(FOR HYPERGLY) 139 mmol/L (136-145); CREATININE 1.04 mg/dL (0.70-1.30); SODIUM 138 mmol/L (136-145); TOTAL PROTEIN 7.1 g/dL (6.4-8.2); eGFR NON BLACK RACES > 60 (>60)
--- NOTE | 2018-06-24 07:01 | RAD ---
HISTORY: Shortness of breath Study: Chest AP portable Comparison: 06/23/2018 Findings: The heart is within normal limits in size. No congestive heart failure is noted. The lungs remain hyperinflated consistent with COPD. Right perihilar parenchymal density is stable. Patchy infiltrates noted in the lower lobes on the prior examination are improving. No pleural effusions are identified. The bony thorax is unremarkable. IMPRESSION: Stable right perihilar opacity Slight improvement bibasilar infiltrates COPD Reported By:
[2018-06-24] MEDS: PULMICORT NEB TX 0.5 MG NEB SCH ×2 (08:37→20:16)
[2018-06-24] MEDS: DUONEB 0.5 MG/3 MG NEB PRN ×4 (08:37→20:16)
[2018-06-24] MEDS: ALBUMIN HUMAN 25%- 100 ML 100 ML IV SCH (08:54)
[2018-06-24] MEDS: LEVAQUIN PREMIX IV 750 MG 750 MG/150 ML BAG IV SCH (08:55)
[2018-06-24] MEDS: SYNTHROID 50 mcg TAB PO SCH (08:55)
[2018-06-24] MEDS: ECOTRIN TAB 325 MG PO SCH (08:55)
[2018-06-24] MEDS: PLAVIX PO SCH (08:55)
[2018-06-24] MEDS ORDERED: MILK OF MAGNESIA PO PRN (09:43)
[2018-06-24] MEDS: ROXICODONE TAB 5 MG PO PRN ×2 (11:02→21:46)
[2018-06-24] MEDS ORDERED: PROCALAMINE 3 % 1,000 ML IV ONE (19:00)
[2018-06-24] MEDS: SNACK - Diabetic Appropriate PO SCH (20:24)
[2018-06-24] MEDS: LIPOSYN III 20% 100ML 100 ML IV SCH (20:25)
[2018-06-24] MEDS ORDERED: COLACE CAP 100 MG PO SCH (21:00)
[2018-06-24] MEDS: ZANAFLEX PO PRN (21:46)
[2018-06-25] MEDS: FORTAZ or TAZICEF VIAL INJ IVP SCH (05:23)
[2018-06-25] MEDS: REQUIP PO SCH (05:23)
[2018-06-25 06:12] LABS: BASOPHILS # (AUTO) 0.1 X10^3/uL (0.0-0.1); BASOPHILS % (AUTO) 0.6 % (0.2-1.0); EOSINOPHILS # (AUTO) 0.3 x10^3/uL (0.0-0.2); EOSINOPHILS % (AUTO) 3.4 % (0.9-2.9); HEMATOCRIT 33.4 % (42.0-54.0); HEMOGLOBIN 10.9 g/dL (13.5-18.0); MEAN CORPUSCULAR HEMOGLOBIN 26.9 pg (27.0-34.0); MEAN CORPUSCULAR HGB CONC 32.6 g/dL (33.0-35.0); MEAN CORPUSCULAR VOLUME 82.5 fL (80.0-100.0); MEAN PLATELET VOLUME 8.1 fL (7.4-11.0); MONOCYTES # (AUTO) 0.6 x10^3/uL (0.3-0.8); MONOCYTES % (AUTO) 6.8 % (0.0-13.0); NEUTROPHILS # (AUTO) 7.2 x10^3/uL (2.2-4.8); NEUTROPHILS % (AUTO) 78.2 % (42.0-75.0); PLATELET COUNT 370 X10^3/uL (150.0-450.0); RED BLOOD COUNT 4.05 X10^6/uL (4.7-6.0); WHITE BLOOD COUNT 9.2 X10^3/uL (3.6-10.0)
[2018-06-25 06:33] LABS: ALANINE AMINOTRANSFERASE 81 Units/L (12-78); ALBUMIN 2.9 g/dL (3.4-5.0); ALKALINE PHOSPHATASE 93 Units/L (46-116); ASPARTATE AMINO TRANSFERASE 43 Units/L (15-37); BLOOD UREA NITROGEN 17 mg/dL (7-18); CALCIUM 9.3 mg/dL (8.5-10.1); CARBON DIOXIDE 28.8 mmol/L (21-32); CHLORIDE 101 mmol/L (98-107); COR CA(FOR HYPOALB) 10.2 mg/dL (8.5-10.1); COR NA(FOR HYPERGLY) 138 mmol/L (136-145); CREATININE 1.15 mg/dL (0.70-1.30); SODIUM 138 mmol/L (136-145); TOTAL PROTEIN 7.5 g/dL (6.4-8.2); eGFR NON BLACK RACES > 60 (>60)
--- NOTE | 2018-06-25 06:41 | RAD ---
HISTORY: Shortness of breath, history of lung cancer Study: Chest AP portable Comparison: 06/24/2018 Findings: The heart is within normal limits in size. The anderson are normal. The lungs are hyperinflated. Right perihilar opacity is unchanged and has been stable for a long period of time. The right lung base is now clear. Left basilar infiltrate is unchanged. No pleural effusions are identified. The bony thorax is unremarkable. IMPRESSION: Stable right perihilar opacity Right lung base now clear No change left basilar infiltrate Hyperinflation consistent with COPD Reported By:
[2018-06-25] MEDS: LEVAQUIN PREMIX IV 750 MG 750 MG/150 ML BAG IV SCH (08:28)
[2018-06-25] MEDS: PLAVIX PO SCH (08:29)
[2018-06-25] MEDS: SYNTHROID 50 mcg TAB PO SCH (08:30)
[2018-06-25] MEDS: ECOTRIN TAB 325 MG PO SCH (08:30)
[2018-06-25] MEDS: ALBUMIN HUMAN 25%- 100 ML 100 ML IV SCH (08:30)
[2018-06-25] MEDS: DUONEB 0.5 MG/3 MG NEB PRN (09:00)
[2018-06-25] MEDS: PULMICORT NEB TX 0.5 MG NEB SCH (09:00)
[2018-06-25] MEDS ORDERED: COLACE CAP 100 MG PO SCH (09:00)
[2018-06-25] MEDS: ROXICODONE TAB 5 MG PO PRN (10:38)
[2018-06-25 12:11] VITALS: BP 132/82
[2018-06-25] MEDS: NS 1000 ML 1,000 ML IV SCH (12:20)
== END 2018-06-25 13:30 | disposition home or self-care (01) | DRG 557 ==
LOC: ER 23:29 → MED/SURG 06-20 02:05
PROVIDERS: ADMIT Internal Medicine; ATTEND Internal Medicine
DX: J41.0 Simple chronic bronchitis; Z90.5 Acquired absence of kidney; J43.9 Emphysema, unspecified; E11.65 Type 2 diabetes mellitus with hyperglycemia; E86.0 Dehydration; E78.2 Mixed hyperlipidemia; M62.82 Rhabdomyolysis; R13.11 Dysphagia, oral phase; R26.89 Other abnormalities of gait and mobility; Z85.528 Personal history of other malignant neoplasm of kidney; Z85.118 Personal history of other malignant neoplasm of bronchus and lung; J18.0 Bronchopneumonia, unspecified organism; R06.02 Shortness of breath; R94.31 Abnormal electrocardiogram [ECG] [EKG]; R74.8 Abnormal levels of other serum enzymes; Z79.891 Long term (current) use of opiate analgesic
CPT/HCPCS: 36415; 71010; 71045; 71260; 74177; 80053; 81001; 82550; 82553; 84134; 84484; 85025; 87040; 87070; 87205; 92526; 92610; 93005; 94640; 94760; 96365; 97116; 97162; 97530; 99221; 99231; 99284; A4222; B4189; B5200; P9047; J0713; J1815; J1956; J2270; J3490; J7030; J7050; J7620; J7626